=== PATIENT | male | born 1965 | race Hispanic/Latino ===

== ENCOUNTER 2019-03-01 07:47 | Day surgery (SDC) | payer BC ==
[2019-02-25 09:40] LABS: Potassium 4.2 mmol/L (3.5-5.1)
[2019-02-25 09:44] LABS: Basophils % 1.4 % (0-1.3); Hematocrit 40.9 % (39.6-49.0); Lymphocytes % 27.1 % (15.3-44.8); MPV 8.7 fL (7.6-11.3); RBC Red Blood Cell Count 4.66 M/uL (4.33-5.43)
[2019-02-25 09:49] LABS: Albumin 3.9 g/dL (3.4-5.0); Bilirubin Direct 0.1 mg/dL (0-0.2); Bilirubin Total 0.4 mg/dL (0.2-1.0); Protein, Total 7.7 g/dL (6.4-8.2)
--- NOTE | 2019-02-25 10:00 | RAD REPORT ---
EXAM DESCRIPTION: Wali Sutton (2 Views)02/25/2019 8:59 am CLINICAL HISTORY: Preop for cholecystectomy COMPARISON: 2018 FINDINGS: The lungs appear clear of acute infiltrate. The heart is normal size IMPRESSION: No acute abnormalities displayed
[2019-03-01] MEDS ORDERED: CEFOXITIN/SWI 1gm 1 GM/10 ML SYR ONE (08:24)
[2019-03-01] MEDS ORDERED: MIDAZOLAM HCL 2 MG/2 ML INJ ONE (08:35)
[2019-03-01] MEDS ORDERED: PROPOFOL 200 MG/20 ML VIAL IV ONE (08:35)
[2019-03-01] MEDS ORDERED: LIDOCAINE 1% MPF 5 ML VIAL ONE (08:36)
[2019-03-01] MEDS ORDERED: ROCURONIUM 50 MG/5 ML VIAL IV ONE (08:36)
[2019-03-01] MEDS ORDERED: FENTANYL CITR 100 MCG/2 ML ONE (08:36)
[2019-03-01] MEDS: NA CHLORIDE 0.9% 1,000 ML ONE (08:37)
[2019-03-01] MEDS ORDERED: GLYCOPYRROLATE 0.2 MG/ML SYR ONE (10:04)
[2019-03-01] MEDS ORDERED: KETOROLAC 30 MG/ML INJ ONE (10:04)
[2019-03-01] MEDS ORDERED: ONDANSETRON 4 MG/2 ML VIAL ONE (10:05)
[2019-03-01] MEDS ORDERED: NEOSTIGMINE 1 MG/ML -10 ML VIAL ONE (10:05)
[2019-03-01] MEDS ORDERED: MEPERIDINE HCL 25 MG/0.5 ML ONE (10:24)
[2019-03-01] MEDS ORDERED: Mastisol Adhesive Liq ONE (10:25)
[2019-03-01] MEDS: HYDROMORPHONE HCL 1 MG/ML INJ ONE ×2 (11:06→11:18)
[2019-03-01] MEDS ORDERED: NA CHLORIDE 0.9% 1,000 ML ONE (11:12)
[2019-03-01 14:00] VITALS: BP 107/68; TEMP 97.1; O2SAT 94
--- NOTE | 2019-03-01 21:26 | OP ---
Date of Procedure: 03/01/2019 Surgeon: Edu Wilson MD Vocational Psychologist: AMANDA Palacios. Preoperative Diagnosis: Symptomatic cholelithiasis and fatty liver. Postoperative Diagnosis: Symptomatic cholelithiasis and fatty liver. Procedure: Laparoscopic cholecystectomy and wedge biopsy of the liver. Estimated Blood Loss: Minimal. Specimen: Gallbladder and wedge biopsy of the liver. Findings: As above. Anesthesia: General. Complications: None. Disposition: The patient tolerated the procedure in stable condition, taken to Recovery in good gene ral condition. Procedure In Detail: The patient was brought to the OR and placed in supine position. General anest hesia was begun. The patient was prepped and draped in usual sterile fashion. Marcaine 0.5% was inf iltrated locally. Then, a 1 cm incision was made in the epigastrium just to the right of midline bec ause patient had mesh from previous hernia repair at the umbilicus. Subcutaneous tissue divided. Th e fascia was identified and divided. A #1 Vicryl stay suture was placed. Peritoneal cavity was ente red with sharp and blunt dissection. 12 mm trocar was placed into the peritoneal cavity under direct vision. Pneumoperitoneum was established. Then, an 11 mm trocar placed in the right paramedian reg ion away from the mesh and two 5 mm trocars placed, 1 in the epigastric and 1 in the right subcostal region. Laparoscopy revealed chronic inflammation of the gallbladder. The fundus was retracted supe riorly. Infundibulum was identified and retracted inferolaterally. Cystic duct and cystic artery we re clearly identified with blunt dissection. Clips placed. Both structures divided. Cautery was us ed to remove the gallbladder from the liver bed. Bleeding on the liver bed was controlled with caute ry. The gallbladder was retrieved through the epigastric trocar in the standard fashion. Pneumoperi toneum reestablished. No evidence of bleeding or bile leakage appreciated. Subsequently, a wedge re section at the edge of the liver done in the standard fashion utilizing cautery, bleeding controlled with cautery, and specimen sent to Pathology. Then, all trocars were removed under direct vision. T here was some oozing noted at the right paramedian incision and this was easily controlled with figur e-of-eight #1 Vicryl suture with Endo Close device. Then, all trocars were removed under direct visi on. No evidence of bleeding was noted from any of the other trocar device and then stay sutures tied to each other across the fascial defect. Wounds irrigated, bleeding controlled with cautery. 3-0 c hromic used to approximate the subcutaneous tissue and close the skin. Sterile dressing was applied. The patient was awakened and taken to Recovery in good general condition. Discharge Note: Patient will go to Day Surgery and home when stable. Disposition: Home. Condition: Stable. Discharge Instructions: Resume home medications and diet. Activity as tolerated. No heavy lifting. Remove outer dressing in 2 days. Shower. Keep wound clean and dry. Follow up in my office in 1 w [place]. Call for appointment. Tylenol No. 3 one tablet p.o. q.4 p.r.n. pain. Keep Steri-Strips on at all times. Incentive spirometer. /MODL Voice ID: [id number] Report ID: [id number]
== END 2019-03-01 13:15 | disposition home or self-care (01) ==
LOC: OR 07:47
PROVIDERS: ATTEND Surgery
PROC: 0FB04ZX Excision of Liver, Percutaneous Endoscopic Approach, Diagnostic (ICD-10-PCS; 2019-03-01)
PROC: 0FT44ZZ Resection of Gallbladder, Percutaneous Endoscopic Approach (ICD-10-PCS; principal; 2019-03-01 09:00)
DX: K80.10 Calculus of gallbladder with chronic cholecystitis without obstruction (principal); K76.0 Fatty (change of) liver, not elsewhere classified; E11.9 Type 2 diabetes mellitus without complications; I10 Essential (primary) hypertension; Z83.3 Family history of diabetes mellitus; Z82.49 Family history of ischemic heart disease and other diseases of the circulatory system
CPT/HCPCS: 85025; 80048; 36415; 82150; 88313; 82962 ×2; 80076; 88304; 88307; 71046; 47562; 47379; J2704; J2710; J2250; J3010; J2175; J1170; J7030 ×2; J2405

== ENCOUNTER 2019-04-03 22:26 | Emergency (ER) | payer BC ==
[2019-04-03] MEDS ORDERED: NA CHLORIDE 0.9% 1,000 ML ONE (23:18)
[2019-04-03] MEDS ORDERED: ONDANSETRON 4 MG/2 ML VIAL ONE (23:18)
[2019-04-03] MEDS ORDERED: KETOROLAC 30 MG/ML INJ ONE (23:18)
[2019-04-03 23:32] LABS: Absolute Lymphocytes (CBC) 0.4 K/uL (0.7-4.9); Basophils % 0.4 % (0-1.3); Hematocrit 39.3 % (39.6-49.0); Lymphocytes % 4.8 % (15.3-44.8); RBC Red Blood Cell Count 4.42 M/uL (4.33-5.43)
[2019-04-03 23:45] LABS: Albumin 3.7 g/dL (3.4-5.0); Bilirubin Direct 0.2 mg/dL (0-0.2); Bilirubin Total 0.7 mg/dL (0.2-1.0); Potassium 3.8 mmol/L (3.5-5.1); Protein, Total 7.5 g/dL (6.4-8.2)
[2019-04-04 00:16] LABS: Blood Morphology Comment NOT SEEN (NOT SEEN); Platelet Estimate ADEQ
--- NOTE | 2019-04-04 02:06 | ER ---
Nurse's Notes [facility] Name: Parker Dumont Age: 53 yrs Sex: Male : 1965 Arrival Date: 04/03/2019 Time: 22:28 Bed 4 Private MD: Diagnosis: Upper abdominal pain, unspecified Presentation: 04/03 22:46 Presenting complaint: Patient states: pain started a few nights ago. it woke me up and rv it is like a sharp on and off pain on my right side. i have nausea and vomiting too. my gall bladder was recently removed four weeks ago. my doctor told me to see the surgeon and I have the appointment tomorrow, but today the pain is getting worse and worse. Transition of care: patient was not received from another setting of care. Onset of symptoms was April 03, 2019 at 18:00. Risk Assessment: Do you want to hurt yourself or someone else? Patient reports no desire to harm self or others. Initial Sepsis Screen: Does the patient meet any 2 criteria? No. Patient's initial sepsis screen is negative. Does the patient have a suspected source of infection? No. Patient's initial sepsis screen is negative. Care prior to arrival: None. 22:46 Method Of Arrival: Ambulatory rv 22:46 Acuity: HANDY 3 rv Triage Assessment: 22:50 General: Appears in no apparent distress. uncomfortable, Behavior is calm, cooperative. rv Pain: Complains of pain in diaphragm Pain radiates to abdomen diffusely. EENT: No signs and/or symptoms were reported regarding the EENT system. Neuro: Level of Consciousness is awake, alert, obeys commands, Oriented to person, place, time, situation. Cardiovascular: Patient's skin is warm and dry. Respiratory: Airway is patent. GI: Abdomen is round non-distended, Reports nausea, vomiting. : No signs and/or symptoms were reported regarding the genitourinary system. Derm: Skin is intact. Musculoskeletal: No signs and/or symptoms reported regarding the musculoskeletal system. Historical: - Allergies: 22:49 No Known Allergies; rv - Home Meds: 22:49 amlodipine 5 mg tab 1 tab once daily [Active]; bisoprolol fumarate 10 mg Oral tab 1 tab rv once daily [Active]; fenofibrate 145mg Oral 1 tab once daily [Active]; glimepiride 4 mg Oral tab 1 tab once daily [Active]; Janumet Oral 1 tab evening [Active]; losartan 100 mg Oral tab 1 tab once daily [Active]; - PMHx: 22:49 Diabetes - NIDDM; High Cholesterol; Hypertension; Pancreatitis; rv - PSHx: 22:49 Cholecystectomy; Hernia repair; rv - Immunization history:: Adult Immunizations up to date. - Social history:: Smoking status: Patient/guardian denies using tobacco, never smoked. - Ebola Screening: : No symptoms or risks identified at this time. Screenin:51 Abuse screen: Denies threats or abuse. Denies injuries from another. Nutritional rv screening: No deficits noted. Tuberculosis screening: No symptoms or risk factors identified. Fall Risk None identified. Assessment: 22:56 General: Appears uncomfortable, well groomed, Behavior is calm, cooperative. Pain: lc1 Complains of pain in Right upper abdomen Pain radiates to abdomen diffusely Pain currently is 10 out of 10 on a pain scale. Quality of pain is described as sharp, Pain began has been coming and going today, but has had this pain before since having his gallbladder out about a month ago Is intermittent. Neuro: Level of Consciousness is awake, alert, obeys commands, Oriented to person, place, time, situation. Cardiovascular: No deficits noted. Denies chest pain, lightheadedness, palpitations, shortness of breath. Respiratory: Airway is patent Respiratory effort is even, unlabored. GI: Bowel sounds present X 4 quads. Abd is soft Reports nausea, vomiting, with pain. : No signs and/or symptoms were reported regarding the genitourinary system. EENT: No signs and/or symptoms were reported regarding the EENT system. Derm: No signs and/or symptoms reported regarding the dermatologic system. Musculoskeletal: No signs and/or symptoms reported regarding the musculoskeletal system. 23:45 Reassessment: Patient and/or family updated on plan of care and expected duration. Pain lc1 level reassessed. Patient is alert, oriented x 3, equal unlabored respirations, skin warm/dry/pink. Patient states feeling better. 04/04 00:21 Reassessment: No changes from previously documented assessment. Patient and/or family lc1 updated on plan of care and expected duration. Pain level reassessed. Patient is alert, oriented x 3, equal unlabored respirations, skin warm/dry/pink. 01:39 Reassessment: No changes from previously documented assessment. Patient and/or family lc1 updated on plan of care and expected duration. Pain level reassessed. Patient is alert, oriented x 3, equal unlabored respirations, skin warm/dry/pink. Vital Signs: 04/03 22:48 BP 161 / 102; Resp 16; Temp 98.7; Pulse Ox 98% ; Weight 88.45 kg; Height 5 ft. 5 in. rv (165.10 cm); Pain 10/10; 22:56 BP 145 / 90; Pulse 80; Resp 18; Pulse Ox 98% on R/A; lc1 23:30 BP 137 / 85; Pulse 76; Resp 18; Pulse Ox 97% on R/A; Pain 0/10; lc1 04/04 00:00 BP 131 / 81; Pulse 69; Resp 20; Pulse Ox 96% on R/A; 1 00:30 BP 128 / 80; Pulse 77; Resp 16; Pulse Ox 95% on R/A; 1 01:16 BP 137 / 82; Pulse 72; Resp 18; Pulse Ox 96% on R/A; 1 01:30 BP 130 / 77; Pulse 67; Resp 16; Pulse Ox 96% on R/A; 1 02:00 BP 129 / 84; Pulse 70; Resp 18; Temp 97.8(TE); Pulse Ox 96% on R/A; 1 04/03 22:48 Body Mass Index 32.45 (88.45 kg, 165.10 cm) rv ED Course: 04/03 22:28 Patient arrived in ED. cl3 22:38 Nima Sanchez PA is PHCP. cp 22:38 Romaine Reyes MD is Attending Physician. cp 22:41 Autumn Cortés is Primary Nurse. lc1 22:48 Triage completed. rv 22:51 Patient has correct armband on for positive identification. Placed in gown. Bed in low rv position. Call light in reach. Side rails up X 1. Adult w/ patient. sales operations coordinator on. Pulse ox on. NIBP on. 22:56 No apparent distress. Resting quietly. lc1 22:56 Noise minimized. Warm blanket given. lc1 23:17 Initial lab(s) drawn, by me, sent to lab. Inserted saline lock: 20 gauge in right jd2 antecubital area, using aseptic technique. Blood collected. 23:40 XRAY Chest (1 view) In Process Unspecified. EDMS 04/04 00:21 Noise minimized. Lights dimmed. 1 00:21 No provider procedures requiring assistance completed. lc1 00:39 Radiology exam delayed due to RESTROOM. 01:00 Patient notified of wait time. lc1 01:19 CT completed. Patient tolerated procedure well. Patient moved to CT via wheelchair. Patient moved back from CT. 01:37 CT Abd/Pelvis - IV Contrast Only In Process Unspecified. EDMS 01:39 Awaiting radiology results. lc1 02:00 IV discontinued, intact, bleeding controlled, Pressure dressing applied. 1 02:04 Edu Wilson MD is Referral Physician. cp Administered Medications: 04/03 23:21 Drug: NS 0.9% 1000 ml Route: IV; Rate: 1 bolus; Site: right antecubital; [facility] 04/04 02:23 Follow up: Response: No adverse reaction; IV Status: Completed infusion [facility] 04/03 23:24 Drug: Zofran 4 mg Route: IVP; Infused Over: 2 mins; Site: right antecubital; 1 23:47 Follow up: Response: No adverse reaction [facility] 23:24 Drug: TORadol 30 mg Route: IVP; Site: right antecubital; 1 23:46 Follow up: Response: Pain is decreased; RASS: Alert and Calm (0) [facility] Outcome: 04/04 02:05 Discharge ordered by MD. cp 02:21 Discharged to home ambulatory, with significant other. [facility] 02:21 Condition: good 02:21 Discharge instructions given to patient, Instructed on discharge instructions, follow up and referral plans. medication usage, Demonstrated understanding of instructions, follow-up care, medications. 02:22 Patient left the ED. [facility] Signatures: Dispatcher [employer] EDNH Arpit Fernandez Autumn Cortés lc1 Nima Sanchez PA PA cp Donley, Jonika jd2 Derek Lawton RN RN Jay Angela cl3
--- NOTE | 2019-04-04 02:06 | EDPHYS ---
Physician Documentation [facility] Name: Parker Dumont Age: 53 yrs Sex: Male : 1965 Arrival Date: 04/03/2019 Time: 22:28 Bed 4 Private MD: ED Physician Romaine Reyes HPI: 04/03 23:20 This 53 yrs old Male presents to ER via Ambulatory with complaints of cp Abdominal Pain. 23:20 The patient presents with abdominal pain in the right upper quadrant. Onset: The cp symptoms/episode began/occurred a few nights ago. The symptoms radiate to mid back. Associated signs and symptoms: Pertinent positives: nausea and vomiting, Pertinent negatives: constipation, diarrhea, fever, headache, shortness of breath, testicular pain. 23:20 The symptoms are described as intermittent, sharp. cp 23:20 Modifying factors: The symptoms are alleviated by narcotics, the symptoms are cp aggravated by nothing. 23:20 Patient reports having cholecystectomy [address]. cp Historical: - Allergies: 22:49 No Known Allergies; rv - Home Meds: 22:49 amlodipine 5 mg tab 1 tab once daily [Active]; bisoprolol fumarate 10 mg Oral tab 1 tab rv once daily [Active]; fenofibrate 145mg Oral 1 tab once daily [Active]; glimepiride 4 mg Oral tab 1 tab once daily [Active]; Janumet Oral 1 tab evening [Active]; losartan 100 mg Oral tab 1 tab once daily [Active]; - PMHx: 22:49 Diabetes - NIDDM; High Cholesterol; Hypertension; Pancreatitis; rv - PSHx: 22:49 Cholecystectomy; Hernia repair; rv - Immunization history:: Adult Immunizations up to date. - Social history:: Smoking status: Patient/guardian denies using tobacco, never smoked. - Ebola Screening: : No symptoms or risks identified at this time. ROS: 23:25 Constitutional: Negative for body aches, chills, fever, poor PO intake. cp 23:25 Eyes: Negative for injury, pain, redness, and discharge. cp 23:25 ENT: Negative for drainage from ear(s), ear pain, sore throat, difficulty swallowing, difficulty handling secretions. 23:25 Cardiovascular: Negative for chest pain, edema, palpitations. 23:25 Respiratory: Negative for cough, shortness of breath, wheezing. 23:25 Abdomen/GI: Positive for abdominal pain, of the right upper quadrant, Negative for diarrhea, constipation, anorexia, dysphagia, active vomiting. 23:25 Back: Positive for radiated pain, Negative for injury or acute deformity, decreased range of motion. 23:25 : Negative for urinary symptoms, pelvic pain, testicular pain 23:25 Skin: Negative for rash. 23:25 Neuro: Negative for altered mental status, headache, numbness, syncope, weakness. 23:25 All other systems are negative. Exam: 23:30 Constitutional: The patient appears in no acute distress, alert, awake, cp non-diaphoretic, non-toxic, well developed, well nourished. 23:30 Head/Face: Normocephalic, atraumatic. cp 23:30 Eyes: Periorbital structures: appear normal, Conjunctiva: normal, no exudate, no injection, Sclera: no appreciated abnormality, Lids and lashes: appear normal, bilaterally. 23:30 ENT: External ear(s): are unremarkable, Nose: is normal, Mouth: is normal, Posterior pharynx: is normal, airway is patent, no erythema, no exudate. 23:30 Chest/axilla: Inspection: normal, Palpation: is normal, no crepitus, no tenderness. 23:30 Cardiovascular: Rate: normal, Rhythm: regular, Heart sounds: murmur, not appreciated, Edema: is not appreciated, JVD: is not appreciated. 23:30 Respiratory: the patient does not display signs of respiratory distress, Respirations: normal, no use of accessory muscles, no retractions, no splinting, no tachypnea, labored breathing, is not present, Breath sounds: are clear throughout, no decreased breath sounds, no stridor, no wheezing. 23:30 Abdomen/GI: Inspection: abdomen appears normal, Bowel sounds: active, all quadrants, Palpation: soft, in all quadrants, mild abdominal tenderness, in the right upper quadrant, rebound tenderness, is not appreciated, voluntary guarding, is not appreciated. 23:30 Back: ROM is normal. 23:30 Skin: no rash present. Vital Signs: 22:48 BP 161 / 102; Resp 16; Temp 98.7; Pulse Ox 98% ; Weight 88.45 kg; Height 5 ft. 5 in. rv (165.10 cm); Pain 10/10; 22:56 BP 145 / 90; Pulse 80; Resp 18; Pulse Ox 98% on R/A; lc1 23:30 BP 137 / 85; Pulse 76; Resp 18; Pulse Ox 97% on R/A; Pain 0/10; lc1 04/04 00:00 BP 131 / 81; Pulse 69; Resp 20; Pulse Ox 96% on R/A; lc1 00:30 BP 128 / 80; Pulse 77; Resp 16; Pulse Ox 95% on R/A; lc1 01:16 BP 137 / 82; Pulse 72; Resp 18; Pulse Ox 96% on R/A; lc1 01:30 BP 130 / 77; Pulse 67; Resp 16; Pulse Ox 96% on R/A; lc1 02:00 BP 129 / 84; Pulse 70; Resp 18; Temp 97.8(TE); Pulse Ox 96% on R/A; lc1 04/03 22:48 Body Mass Index 32.45 (88.45 kg, 165.10 cm) rv MDM: 04/03 22:44 Patient medically screened. cp 23:55 Differential diagnosis: bowel obstruction, gastritis, non-specific abd pain, cp pancreatitis, Peptic Ulcer Disease, Perf. Duodenal Ulcer, Perf. Gastric Ulcer, Ureterolithiasis, urinary tract infection, pneumonia, choledocholithiasis. 04/04 02:05 Data reviewed: vital signs, nurses notes, lab test result(s), radiologic studies, CT cp scan, I have discussed the patient's presentation/case with the attending Emergency Department Physician; and as a result, I will discharge patient. 02:05 Counseling: I had a detailed discussion with the patient and/or guardian regarding: the cp historical points, exam findings, and any diagnostic results supporting the discharge/admit diagnosis, lab results, radiology results, the need for outpatient follow up, a general surgeon, to return to the emergency department if symptoms worsen or persist or if there are any questions or concerns that arise at home. Response to treatment: the patient's symptoms have markedly improved after treatment, VSS. Pain improved and patient has appt with DR Wilson later today for f/u, and as a result, I will discharge patient. 04/03 23:07 Order name: Basic Metabolic Panel; Complete Time: 23:48 cp 04/03 23:48 Interpretation: Normal except: GLUC 146; BUN 21; GFR 64. cp 04/03 23:07 Order name: CBC with Diff; Complete Time: 00:40 cp 04/03 23:49 Interpretation: Normal except: HGB 13.4; HCT 39.3; LEE% 90.3; LYM% 4.8; MN% 2.6; LYMA cp 0.4. 04/03 23:07 Order name: Creatinine for Radiology; Complete Time: 23:48 cp 04/03 23:07 Order name: Hepatic Function; Complete Time: 23:48 cp 04/04 00:40 Interpretation: Normal except: AST 53; GLOB 3.8; A/G 1.0. cp 04/03 23:07 Order name: Lipase; Complete Time: 23:48 cp 04/03 23:16 Order name: Urine Microscopic Only cp 04/03 23:16 Order name: XRAY Chest (1 view) cp 04/03 23:16 Order name: Urine Microscopic Only EDMS 04/03 23:42 Order name: Manual Differential; Complete Time: 00:40 EDMS 04/04 00:40 Interpretation: Normal except: SEGS 84; BANDS [F] 7; LYM 6. cp 04/03 23:50 Order name: CT Abd/Pelvis - IV Contrast Only cp 04/04 01:13 Order name: Urine Dipstick--Ancillary (enter results) [facility] 04/03 23:07 Order name: IV Saline Lock; Complete Time: 23:17 cp 04/03 23:07 Order name: Labs collected and sent; Complete Time: 23:17 cp Administered Medications: 04/03 23:21 Drug: NS 0.9% 1000 ml Route: IV; Rate: 1 bolus; Site: right antecubital; [facility] 04/04 02:23 Follow up: Response: No adverse reaction; IV Status: Completed infusion [facility] 04/03 23:24 Drug: Zofran 4 mg Route: IVP; Infused Over: 2 mins; Site: right antecubital; [facility] 23:47 Follow up: Response: No adverse reaction [facility] 23:24 Drug: TORadol 30 mg Route: IVP; Site: right antecubital; [facility] 23:46 Follow up: Response: Pain is decreased; RASS: Alert and Calm (0) [facility] Disposition: 04/04 06:13 Co-signature as Attending Physician, Romaine Reyes MD. Disposition: 04/04/19 02:05 Discharged to Home. Impression: Upper abdominal pain, unspecified. - Condition is Stable. - Discharge Instructions: Abdominal Pain, Adult. - Prescriptions for Bentyl 20 mg Oral Tablet - take 2 tablet by ORAL route every 6 hours As needed; 40 tablet. Zofran 4 mg Oral Tablet - take 1 tablet by ORAL route every 12 hours As needed; 20 tablet. - Medication Reconciliation Form, Thank You Letter, Antibiotic Education, Prescription Opioid Use form. - Follow up: Edu Wilson MD; When: Today; Reason: Recheck today's complaints. - Problem is new. - Symptoms have improved. Signatures: Dispatcher [employer] EDMS Autumn Cortés lc1 Nima Sanchez PA PA cp Romaine Reyes MD MD Derek Lawton RN RN rv Corrections: (The following items were deleted from the chart) 02:22 02:05 04/04/2019 02:05 Discharged to Home. Impression: Upper abdominal pain, lc1 unspecified. Condition is Stable. Forms are Medication Reconciliation Form, Thank You Letter, Antibiotic Education, Prescription Opioid Use. Follow up: Dr. Edu iWlson; When: Today; Reason: Recheck today's complaints. Problem is new. Symptoms have improved. cp
[2019-04-04 02:17] LABS: Urine Bacteria <20 /HPF (NONE SEEN); Urine Culture Reflex Order NOT NEEDED; Urine Mucus 1+ /HPF (NONE SEEN); Urine RBC <5 /HPF (NONE SEEN)
[2019-04-04 02:35] VITALS: O2SAT 96
[2019-04-04 02:37] VITALS: BP 129/84; TEMP 97.8
[2019-04-04 03:18] LABS: Urine Blood NEGATIVE (NEG); Urine Glucose NEGATIVE (NEG); Urine Protein NEGATIVE (NEG); Urine Specific Gravity 1.015 (1.005-1.030); Urine pH 6.5 (5.0-7.0)
--- NOTE | 2019-04-04 07:27 | RAD REPORT ---
EXAM DESCRIPTION: RAD - Chest Single View - 04/03/2019 11:40 pm CLINICAL HISTORY: Upper abdominal pain, lower chest pain COMPARISON: February 25 TECHNIQUE: AP portable chest image was obtained 2328 hours . FINDINGS: Lungs are clear. Heart and vasculature are normal. No measurable pleural effusion and no p neumothorax. No acute bony abnormality seen. No acute aortic findings suspected. IMPRESSION: No acute cardiopulmonary process. No suspicious interval change.
--- NOTE | 2019-04-04 08:29 | EKG ---
Test Date: 2019-04-03 Test Time: 22:48:03 [employer] Architect: TOMMY MEASUREMENT RESULTS: Intervals: Rate: 77 [place]: 176 QRSD: 94 QT: 390 QTc: 441 [place]: P: 71 [place]: 176 QRS: 62 T: 56 INTERPRETIVE STATEMENTS: Normal sinus rhythm Normal ECG Compared to ECG 08/07/2017 08:04:41 Right-axis deviation no longer present Electronically Signed On 04-04-19 08:27:34 CDT by Geovany Pickett
--- NOTE | 2019-04-04 11:58 | RAD REPORT ---
EXAM DESCRIPTION: CT - Abdomen Pelvis W Contrast - 04/04/2019 2:05 am CLINICAL HISTORY: RUQ abdomen pain, cholecystectomy 1 month ago COMPARISON: None. TECHNIQUE: CT ABDOMEN PELVIS WITH IV CONTRAST on 04/03/2019 11:50 PM CDT This exam was performed according to our departmental dose-optimization program, which includes autom ated exposure control, adjustment of the mA and/or kV according to patient size and/or use of iterati ve reconstruction technique. FINDINGS: Lower lungs are clear. Abdomen: Liver is mildly enlarged and fatty in attenuation. There is no biliary dilatation. Cholecyst ectomy. The pancreas and spleen are normal in appearance. Adrenal glands are normal. There is a 1 mm lower pole left renal calculus. There is no hydronephrosis. Abdominal aorta is normal in course and caliber without aneurysm. There is no free air. There is no r etroperitoneal adenopathy.There is a small fat-containing umbilical hernia. Pelvis: There is no bowel obstruction. Urinary bladder is unremarkable. There is no free fluid. Appen chay is normal. There are small fat-containing bilateral inguinal hernias. Skeleton: There are no acute osseous findings. No suspicious bony lesions. IMPRESSION: Minimal left nephrolithiasis without hydronephrosis. Unremarkable right upper quadrant other than mild hepatic cirrhosis. Electronically signed by: Chilo Bone MD 04/04/2019 1:42 AM CDT Due to temporary technical issues with the PACS/Fluency reporting system, reports are being signed by the in house radiologist as a courtesy to ensure prompt reporting. The interpreting radiologist is f ully responsible for the content of the report.
== END 2019-04-04 02:22 | disposition home or self-care (01) ==
LOC: ER 22:26
DX: R10.11 Right upper quadrant pain (principal); I10 Essential (primary) hypertension; E11.9 Type 2 diabetes mellitus without complications; E78.00 Pure hypercholesterolemia, unspecified
CPT/HCPCS: 96361; 93005; 85025; 80048; 36415; 80076; 83690; 74177; 71045; 96375; 96374; 99285; Q9967; J7030; J2405; 81003; 81015

== ENCOUNTER 2020-01-11 16:22 | Inpatient (IN) | payer BC, OTHER ==
--- OUTSIDE RECORDS SUMMARY | 2020-01-11 16:25 | XMS REPORT | Clinical Summary ---
:1965 Author Organization [facility] Address [address] [place] [address] Care Team Providers Name Role Phone Keiht Lopez MD Primary Care Provider Allergies No Known Allergies Medications Medication Sig Dispensed Refills Start Date End Date Status amLODIPine (NORVASC) 5 0 12/18/2017 Active mg tablet glimepiride (AMARYL) 4 0 12/09/2017 Active MG tablet BISOPROLOL FUMARATE Take 10 mg by 0 Active ORAL mouth. metFORMIN (GLUCOPHAGE) Take 500 mg by 0 Active 500 mg tablet mouth 2 (two) times a day with meals. fenofibrate (TRICOR) Take 145 mg by 0 Active 145 MG tablet mouth daily. ezetimibe (ZETIA) 10 mg Take 10 mg by 0 Active tablet mouth daily. Active Problems Not on file Family History Medical History Relation Name Comments Hypertension Father Diabetes Mother Relation Name Status Comments Father Mother Social History Tobacco Use Types Packs/Day Years Used Date Never Smoker Smokeless Tobacco: Never Used Alcohol Use Drinks/Week oz/Week Comments No Sex Assigned at Date Recorded Not on file Job Start Date Occupation Industry Not on file Not on file Not on file Travel History Travel Start Travel End No recent travel history available. Last Filed Vital Signs Not on file Plan of Treatment Health Maintenance Due Date Last Done Comments COLONOSCOPY SCREENING 2016 SHINGLES VACCINES (#1) 2016 INFLUENZA VACCINE 01/11/2020 Implants Implanted Type Area Staple Cutter Device Shelf Model / Identifier Expiration Serial / Date Lot Device Fxtn Absrbl Strp 5mm Securestrap - [id number] Surgical N/A: N/A ETH[employer]ON DIV OF 08/10/2019 [id number] / Implanted: Qty: 1 on 01/18/2018 by Miki Rosa MD at [facility] Implants; DAMION & / Expanders; DAMION Extenders; Surgical Wires Mesh Hrnia Rpr Parietex 6x4in Rectngl Cmpst Resbl Plystr - L [id number] Surgical N/A: N/A COVIDIEN 05/11/2022 [id number] / Implanted: 01/18/2018 at [facility] (Quantity not on file) Mesh or SURGICAL / Tissue [id number] Barrier Products Results Not on fileafter 01/10/2019 Advance Directives For more information, please contact: [phone] Type Date Recorded Patient Home Companion Explanati on Advance Directives, Living Will and Medical Power of Drug Abuse Social Worker
[2020-01-11 17:11] LABS: Absolute Lymphocytes (CBC) 0.7 K/uL (0.7-4.9); Basophils % 0.1 % (0-1.3); Lymphocytes % 8.2 % (15.3-44.8); MPV 7.3 fL (7.6-11.3); RBC Red Blood Cell Count 4.02 M/uL (4.33-5.43)
[2020-01-11 17:14] LABS: Protime INR 1.34
[2020-01-11] MEDS ORDERED: ALBUTEROL INHALER 60 PUFF/8 GM IH ONE (17:19)
[2020-01-11] MEDS ORDERED: METHYLPREDNISOLONE 40 MG INJ ONE (17:19)
[2020-01-11] MEDS ORDERED: CEFTRIAXONE/SWI 1gm 1 GM/10 ML SYR ONE (17:19)
[2020-01-11 17:39] LABS: ALT/SGPT 47 U/L (12-78); AST/SGOT 35 U/L (15-37); Albumin 3.1 g/dL (3.4-5.0); Alkaline Phosphatase 80 U/L (45-117); BUN Blood Urea Nitrogen 22 mg/dL (7-18); Bicarbonate 26 mmol/L (21-32); Bilirubin Direct 0.1 mg/dL (0-0.2); Bilirubin Total 0.4 mg/dL (0.2-1.0); Glucose Level 135 mg/dL (74-106); Magnesium 2.2 mg/dL (1.8-2.4); NT PRO-BNP 80 pg/mL (<125); Potassium 3.7 mmol/L (3.5-5.1); Protein, Total 8.4 g/dL (6.4-8.2); Sodium Level 140 mmol/L (136-145); Troponin (Emerg Dept Use Only) < 0.02 ng/mL (0.0-0.045)
[2020-01-11 17:49] LABS: Blood Morphology Comment NOT SEEN (NOT SEEN); Platelet Estimate ADEQ; Urine White Blood Cell Casts OK
--- NOTE | 2020-01-11 17:52 | ER ---
Nurse's Notes [facility] Name: Parker Dumont Age: 54 yrs Sex: Male : 1965 Arrival Date: 01/11/2020 Time: 16:27 Bed 8 Private MD: Diagnosis: Pneumonia due to other specified infectious organisms;Respiratory failure, unspecified with hypoxia Presentation: 01/10 16:30 Chief complaint: Patient states: SOB x 3 days. Was told by Dr. Lopez after a ss chest XRAY that he had pneumonia. Coronavirus screen: Client denies travel out of the [place] in the last 14 days. Client presents with at least one sign or symptom that may indicate coronavirus-19. Ebola Screen: Patient denies exposure to infectious person. Patient denies travel to an Ebola-affected area in the 21 days before illness onset. Initial Sepsis Screen: Does the patient meet any 2 criteria? RR > 20 per min. Does the patient have a suspected source of infection? Yes: Productive cough/pneumonia. Risk Assessment: Do you want to hurt yourself or someone else? Patient reports no desire to harm self or others. Onset of symptoms was January 08, 2020. 16:30 Method Of Arrival: Ambulatory ss 16:30 Acuity: HANDY 2 ss Historical: - Allergies: 16:32 No Known Allergies; ss - PMHx: 16:32 Diabetes - NIDDM; High Cholesterol; Hypertension; Pancreatitis; ss - PSHx: 16:32 Hernia repair; Cholecystectomy; ss - Immunization history:: Adult Immunizations up to date. - Social history:: Smoking status: Patient denies any tobacco usage or history of. Screenin:11 Abuse screen: Denies threats or abuse. Nutritional screening: No deficits noted. ll1 Tuberculosis screening: No symptoms or risk factors identified. Fall Risk IV access (20 points). Ambulatory Aid- Crutches/Cane/Walker (15 pts). Gait- Weak (10 pts.). Total Bah Fall Scale indicates High Risk Score (45 or more points). Fall prevention measures have been instituted. Side Rails Up X 2 Frequent Obs/Assessments Occuring As available patient and family educated on Fall Prevention Program and Strategies. Assessment: 17:11 General: Appears uncomfortable, Behavior is cooperative, anxious. Pain: Denies pain. ll1 Neuro: No deficits noted. Cardiovascular: No deficits noted. Respiratory: Reports shortness of breath at rest labored breathing Airway is patent Trachea midline Respiratory effort is labored, Respiratory pattern is tachypnea Breath sounds are diminished bilaterally. GI: No deficits noted. : No deficits noted. 18:10 Reassessment: Patient appears in no apparent distress at this time. No changes from ll1 previously documented assessment. Patient and/or family updated on plan of care and expected duration. Pain level reassessed. Patient is alert, oriented x 3, equal unlabored respirations, skin warm/dry/pink. Vital Signs: 16:30 Pulse 84; Resp 36; Pulse Ox 84% on R/A; Weight 84.82 kg; Height 5 ft. 5 in. (165.10 ss cm); Pain 0/10; 16:38 Temp 98.2; ll1 17:10 BP 134 / 87; ll1 17:25 Pulse 82; Resp 28; Pulse Ox 94% on 3 lpm NC; ll1 18:40 BP 112 / 72; Pulse 85; Resp 28; Pulse Ox 89% on 3 lpm NC; ll1 19:17 BP 118 / 65; Pulse 84; Resp 26; Pulse Ox 92% on 4 lpm NC; ll1 16:30 Body Mass Index 31.12 (84.82 kg, 165.10 cm) ED Course: 16:27 Patient arrived in ED. fj1 16:30 Nima Sanchez PA is PHCP. cp 16:30 Colten Carmona MD is Attending Physician. cp 16:32 Triage completed. ss 16:32 Arm band placed on right wrist. ss 17:10 Ryan Case, XAVIER is Primary Nurse. ll1 17:11 Inserted saline lock: 22 gauge in right antecubital area, using aseptic technique. ll1 Blood collected. 17:12 Patient has correct armband on for positive identification. Bed in low position. Call ll1 light in reach. Side rails up X2. Adult w/ patient. 17:12 No provider procedures requiring assistance completed. ll1 17:36 XRAY Chest (1 view) In Process Unspecified. EDMS 17:51 Keith Lopez MD is Hospitalizing Provider. cp 18:26 CT Chest For PE Angio In Process Unspecified. EDMS Administered Medications: 17:25 Drug: Rocephin 1 grams Route: IV; Rate: calculated rate; Site: right antecubital; ll1 18:45 Follow up: Response: No adverse reaction; RASS: Alert and Calm (0); IV Status: ll1 Completed infusion; IV Intake: 20ml 17:25 Drug: SOLU-Medrol 80 mg Route: IVP; Site: right antecubital; ll1 18:44 Follow up: Response: No adverse reaction; RASS: Alert and Calm (0) ll1 18:44 Drug: Albuterol HFA Inhaler 2 puffs Route: Inhalation; ll1 19:15 Drug: Zithromax 500 mg Route: IVPB; Infused Over: 1 hrs; Site: right antecubital; ll1 19:16 Drug: NS 0.9% (30 ml/kg) 30 ml/kg Route: IV; Rate: bolus; Site: right antecubital; ll1 19:16 Drug: Dexamethasone 6 mg Route: IVP; Site: right antecubital; ll1 20:04 Drug: Lovenox 40 mg Route: Sub-Q; Site: abdomen; ao 20:04 Follow up: Response: Other; OtherAdmission ao 20:06 Drug: NS 0.9% (30 ml/kg) 30 ml/kg Route: IV; Rate: bolus; Site: right antecubital; ao Intake: 18:45 IV: 20ml; Total: 20ml. 1 Outcome: 17:52 Decision to Hospitalize by Provider. cp 20:10 Patient left the ED. ao Signatures: Dispatcher [employer] EDElva Kramer RN RN ss Page, Corey, PA PA cp Ralf Jones RN RN ao James, [facility] Ryan Case RN RN [facility]
--- NOTE | 2020-01-11 17:53 | EDPHYS ---
Physician Documentation [facility] Name: Parker Dumont Age: 54 yrs Sex: Male : 1965 Arrival Date: 01/11/2020 Time: 16:27 Bed 8 Private MD: ED Physician Colten Carmona HPI: 01/10 16:40 This 54 yrs old Male presents to ER via Ambulatory with complaints of cp Breathing Difficulty. 16:40 The patient has shortness of breath at rest. Onset: The symptoms/episode began/occurred cp 3 day(s) ago. Duration: The symptoms are continuous, and are steadily getting worse. Associated signs and symptoms: Pertinent positives: chest pain, non-productive cough, Pertinent negatives: diaphoresis, fever. Severity of symptoms: in the emergency department the symptoms are worse. 16:40 Patient reports having chest xray this past that showed pneumonia. PCP is DR ramesh Lopez. Currently taking antibiotic. Historical: - Allergies: 16:32 No Known Allergies; ss - PMHx: 16:32 Diabetes - NIDDM; High Cholesterol; Hypertension; Pancreatitis; ss - PSHx: 16:32 Hernia repair; Cholecystectomy; ss - Immunization history:: Adult Immunizations up to date. - Social history:: Smoking status: Patient denies any tobacco usage or history of. ROS: 16:45 Constitutional: Negative for body aches, chills, fever, poor PO intake. cp 16:45 Eyes: Negative for injury, pain, redness, and discharge. cp 16:45 ENT: Negative for drainage from ear(s), ear pain, sore throat, difficulty swallowing, difficulty handling secretions. 16:45 Cardiovascular: Positive for chest pain, Negative for palpitations. 16:45 Respiratory: Positive for cough, "sounds productive", shortness of breath, at rest. Negative for wheezing. 16:45 Abdomen/GI: Negative for abdominal pain, nausea, vomiting, and diarrhea. 16:45 Back: Negative for radiated pain. 16:45 : Negative for urinary symptoms. 16:45 Neuro: Negative for altered mental status, dizziness, headache, syncope, weakness. 16:45 All other systems are negative. Exam: 16:50 Head/Face: Normocephalic, atraumatic. cp 16:50 Constitutional: The patient appears alert, awake, non-diaphoretic, non-toxic, well developed, well nourished, in obvious distress, moderately distressed, obviously ill. 16:50 Eyes: Periorbital structures: appear normal, Pupils: equal, round, and reactive to light and accomodation, Extraocular movements: intact throughout, Conjunctiva: normal, no exudate, no injection, Sclera: no appreciated abnormality, Lids and lashes: appear normal, bilaterally. 16:50 ENT: External ear(s): are unremarkable, Ear canal(s): are normal, clear, TM's: dullness, bilaterally, Nose: is normal, Mouth: Lips: moist, Oral mucosa: pink and intact, moist, Posterior pharynx: is normal, airway is patent, no erythema, no exudate. 16:50 Neck: ROM/movement: is normal, is supple, without pain, no range of motions limitations, no meningismus. 16:50 Chest/axilla: Inspection: normal, Palpation: is normal, no crepitus, no tenderness. 16:50 Cardiovascular: Rate: normal, Rhythm: regular, Edema: is not appreciated, JVD: is not appreciated. 16:50 Respiratory: moderate respiratory distress is noted, Respirations: labored breathing, that is moderate, accessory muscle usage, is absent, shallow respirations, that is moderate, tachypnea, that is moderate, Breath sounds: bronchial sounds, that are moderate, are heard diffusely, decreased breath sounds, that are mild, throughout, stridor, is not appreciated, wheezing: is not appreciated. 16:50 Abdomen/GI: Inspection: abdomen appears normal, Bowel sounds: active, all quadrants, Palpation: abdomen is soft and non-tender, in all quadrants. 16:50 Back: pain, is absent, ROM is normal. 16:50 Skin: no rash present. 16:50 Neuro: Orientation: to person, place \\T\\ time. Mentation: is normal, Motor: moves all fours, strength is normal, Sensation: is normal. 17:00 ECG was reviewed by the Attending Physician. cp Vital Signs: 16:30 Pulse 84; Resp 36; Pulse Ox 84% on R/A; Weight 84.82 kg; Height 5 ft. 5 in. (165.10 ss cm); Pain 0/10; 16:38 Temp 98.2; ll1 17:10 BP 134 / 87; ll1 17:25 Pulse 82; Resp 28; Pulse Ox 94% on 3 lpm NC; ll1 18:40 BP 112 / 72; Pulse 85; Resp 28; Pulse Ox 89% on 3 lpm NC; ll1 19:17 BP 118 / 65; Pulse 84; Resp 26; Pulse Ox 92% on 4 lpm NC; ll1 16:30 Body Mass Index 31.12 (84.82 kg, 165.10 cm) ss MDM: 16:34 Patient medically screened. cp 17:00 Differential diagnosis: CHF exacerbation, Myocardial Infarction pneumonia, pulmonary cp edema, Pulmonary Embolism Sepsis COVID-19 pneumonia. 17:50 Physician consultation: Keith Lopez MD was called at 17:51, was contacted at 17:51, cp regarding admission, to the telemetry unit. patient's condition, would like consultation with Dr. Aiken. 17:55 Data reviewed: vital signs, nurses notes, lab test result(s), EKG, radiologic studies, cp plain films, and as a result, I will admit patient. 17:55 Antibiotic administration: Zithromax. Test interpretation: by ED physician or midlevel cp provider: ECG, plain radiologic studies, chest xray shows bilateral infiltrates. Counseling: I had a detailed discussion with the patient and/or guardian regarding: the historical points, exam findings, and any diagnostic results supporting the discharge/admit diagnosis, lab results, radiology results, the need for further work-up and treatment in the hospital. 01/10 16:34 Order name: Basic Metabolic Panel; Complete Time: 17:44 cp 01/10 17:44 Interpretation: Normal except: GLUC 135; BUN 22; CRE 1.48; GFR 50. cp 01/10 16:34 Order name: CBC with Diff; Complete Time: 18:47 cp 01/10 17:21 Interpretation: Normal except: WBC 8.2; RBC 4.02; HGB 12.0; HCT 35.0; PLT 309; MPV 7.3; cp LEE% 87.8; LYM% 8.2. 01/10 16:34 Order name: LFT's; Complete Time: 17:44 cp 01/10 17:44 Interpretation: Normal except: TP 8.4; ALB 3.1; GLOB 5.3; A/G 0.6. cp 01/10 16:34 Order name: Magnesium; Complete Time: 17:44 cp 08/ 16:34 Order name: NT PRO-BNP; Complete Time: 17:44 cp 08/ 16:34 Order name: PT-INR; Complete Time: 17:21 cp 08/01 17:21 Interpretation: Abnormal: PT 15.7. cp 08/01 16:34 Order name: Troponin (emerg Dept Use Only); Complete Time: 17:44 cp / 16:34 Order name: COVID-19 cp 08/ 16:34 Order name: Flu cp 08/ 16:34 Order name: Strep cp 08/ 16:34 Order name: Blood Culture Adult (2) cp 01/10 16:34 Order name: Lactate; Complete Time: 17:31 cp 08/ 17:31 Interpretation: Abnormal: LAC 2.1. cp / 16:34 Order name: Procalcitonin; Complete Time: 17:44 cp 01/10 17:44 Interpretation: Abnormal: Procalcitonin 0.89. cp 01/10 16:34 Order name: D-Dimer; Complete Time: 17:21 cp 08/ 17:21 Interpretation: Within normal limits. cp 01/10 16:34 Order name: XRAY Chest (1 view); Complete Time: 18:47 cp 01/10 17:13 Order name: CBC Smear Scan; Complete Time: 18:47 EDMS 01/10 17:16 Order name: C-Reactive Protein; Complete Time: 17:44 EDMS 01/10 17:44 Interpretation: Abnormal: C-REACTIVE PROT 197.00. cp 01/10 17:50 Order name: CT Chest For PE Angio; Complete Time: 18:47 cp 01/10 18:26 Order name: Basic Metabolic Panel EDMS 01/10 18:26 Order name: Basic Metabolic Panel EDMS 01/10 18:26 Order name: Lipid Profile EDMS 01/10 18:26 Order name: Lipid Profile EDMS 01/10 18:28 Order name: CBC with Automated Diff EDMS 01/10 18:28 Order name: CBC with Automated Diff EDMS 01/10 18:28 Order name: Troponin I EDMS 01/10 18:28 Order name: Troponin I EDMS 01/10 16:34 Order name: EKG; Complete Time: 16:35 cp 01/10 16:34 Order name: Cardiac monitoring; Complete Time: 17:04 08 16:34 Order name: EKG - Nurse/Tech; Complete Time: 17:04 01/10 16:34 Order name: IV Saline Lock; Complete Time: 17:04 01/10 16:34 Order name: Labs collected and sent; Complete Time: 17:03 01/10 16:34 Order name: O2 Per Protocol; Complete Time: 17:03 01/10 16:34 Order name: O2 Sat Monitoring; Complete Time: 17:03 01/10 16:34 Order name: Document PUI# 01/10 16:34 Order name: Droplet/Contact Precautions; Complete Time: 17:04 01/10 16:34 Order name: Notify Health Dept [phone]/ 01/10 18:28 Order name: CONS Physician Consult EDTN 01/10 18:28 Order name: Respiratory Therapy Consult EDTN 01/10 18:28 Order name: Consistent Carb (ADA) 1800 Jareth EDTN 01/10 18:28 Order name: EKG Electrocardiogram EDTN 01/10 18:28 Order name: EKG Electrocardiogram EDTN 01/10 18:28 Order name: EKG Electrocardiogram EDTN EC:00 Rate is 81 beats/min. Rhythm is regular. IA interval is normal. QRS interval is normal. cp QT interval is normal. T waves are Inverted in lead aVR. Interpreted by me. Reviewed by me. Administered Medications: 17:25 Drug: Rocephin 1 grams Route: IV; Rate: calculated rate; Site: right antecubital; [facility] 18:45 Follow up: Response: No adverse reaction; RASS: Alert and Calm (0); IV Status: ll1 Completed infusion; IV Intake: 20ml 17:25 Drug: SOLU-Medrol 80 mg Route: IVP; Site: right antecubital; 1 18:44 Follow up: Response: No adverse reaction; RASS: Alert and Calm (0) 1 18:44 Drug: Albuterol HFA Inhaler 2 puffs Route: Inhalation; ll1 19:15 Drug: Zithromax 500 mg Route: IVPB; Infused Over: 1 hrs; Site: right antecubital; [facility] 19:16 Drug: NS 0.9% (30 ml/kg) 30 ml/kg Route: IV; Rate: bolus; Site: right antecubital; ll1 19:16 Drug: Dexamethasone 6 mg Route: IVP; Site: right antecubital; ll1 20:04 Drug: Lovenox 40 mg Route: Sub-Q; Site: abdomen; ao 20:04 Follow up: Response: Other; OtherAdmission ao 20:06 Drug: NS 0.9% (30 ml/kg) 30 ml/kg Route: IV; Rate: bolus; Site: right antecubital; ao Disposition: 01/11 16:46 Co-signature as Attending Physician, Colten Carmona MD I agree with the assessment and kdr plan of care. Disposition: 01/11/20 17:52 Hospitalization ordered by Keith Lopez for Inpatient Admission. Preliminary diagnosis are Pneumonia due to other specified infectious organisms, Respiratory failure, unspecified with hypoxia. - Bed requested for Telemetry/MedSurg (Inpatient). - Status is Inpatient Admission. ao - Condition is Serious. - Problem is new. - Symptoms have improved. Signatures: Dispatcher [employer] [facility] Faye Quijano, RN RN Colten Ford MD MD [facility] Elva Plaza RN RN ss Nima Sanchez PA PA cp Ralf Jones RN RN Ryan Longoria RN RN ll1 Corrections: (The following items were deleted from the chart) 01/10 17:15 16:40 C-REACTIVE PROTEIN+C.LAB.BRZ ordered. [facility] EDTN 19:02 17:52 Hospitalization Ordered by Keith Lopez MD for Inpatient Admission. Preliminary diagnosis is Pneumonia due to other specified infectious organisms; Respiratory failure, unspecified with hypoxia. Bed requested for Telemetry/MedSurg (Inpatient). Status is Inpatient Admission. Condition is Serious. Problem is new. Symptoms have improved. cp 20:10 19:02 01/11/2020 17:52 Hospitalization Ordered by Keith Lopez MD for Inpatient ao Admission. Preliminary diagnosis is Pneumonia due to other specified infectious organisms; Respiratory failure, unspecified with hypoxia. Bed requested for Telemetry/MedSurg (Inpatient). Status is Inpatient Admission. Condition is Serious. Problem is new. Symptoms have improved. dw
[2020-01-11] MEDS ORDERED: ONDANSETRON 4 MG/2 ML VIAL IV PRN (18:21)
--- NOTE | 2020-01-11 18:23 | RAD REPORT ---
EXAM DESCRIPTION: RAD - Chest Single View - 01/11/2020 5:37 pm CLINICAL HISTORY: Cough;SOB Chest pain. COMPARISON: Chest Pa And Lat (2 Views) dated 01/07/2020; Chest Single View dated 04/03/2019; Chest Pa And Lat (2 Views) dated 02/25/2019; Chest Single View dated 08/06/2017; Chest For Pe Angio dated 020 FINDINGS: Portable technique limits examination quality. Mild bilateral pulmonary opacities are present, greatest in the lung bases, likely representing pneum onia. Findings are moderately progressive since the comparative radiograph. The heart is normal in si ze. No displaced fractures.
--- NOTE | 2020-01-11 18:31 | RAD REPORT ---
EXAM DESCRIPTION: CT - Chest For Pe Angio - 01/11/2020 6:25 pm CLINICAL HISTORY: Chest pain. SOB COMPARISON: No comparisons TECHNIQUE: CT angiogram of the pulmonary arteries was performed with MIP. All CT scans are performed using dose optimization technique as appropriate and may include automated exposure control or mA/KV adjustment according to patient size. FINDINGS: No evidence of pulmonary thromboembolism. No acute aortic finding demonstrated. Moderate bilateral ground-glass and alveolar lung infiltrates are present, greatest in the lung bases . No significant pericardial or pleural fluid. No concerning bony finding. Fatty liver is present. IMPRESSION: No evidence of pulmonary thromboembolism. Moderate bilateral ground-glass and alveolar lung infiltrates are present, greatest in the lung bases . While not specific, this pattern can be seen in COVID-19 infection.
[2020-01-11] MEDS ORDERED: NA CHLORIDE 0.9% 1,000 ML IV SCH ×2 (19:00→22:20)
[2020-01-11] MEDS ORDERED: dexAMETHasone 4 MG/ML VIAL ONE (19:04)
[2020-01-11] MEDS ORDERED: AZITHROMYCIN 500 MG INJ IVPB ONE (19:05)
[2020-01-11] MEDS ORDERED: NA CHLORIDE 0.9% 250 ML ONE (19:05)
[2020-01-11] MEDS ORDERED: ACETAMINOPHEN 325 MG TABLET PO PRN (21:16)
[2020-01-11] MEDS: INSULIN -REGULAR HUMAN 50 UNIT/0.5 ML ML SQ SCH (21:19)
[2020-01-11] MEDS: PIPER/TAZO/NS 3.375gm 3.375 GM/100 ML BAG IV SCH (21:40)
[2020-01-11] MEDS ORDERED: PIPER/TAZO/NS 3.375gm 3.375 GM/100 ML BAG ONE ×2 (21:40→23:45)
--- NOTE | 2020-01-11 22:15 | P.HP ---
Certification for Inpatient Patient admitted to: Inpatient With expected LOS: >2 Midnights Practitioner: I am a practitioner with admitting privileges, knowledge of patient current condition, hospital course, and medical plan of care. Services: Services provided to patient in accordance with Admission requirements found in Title 42 Section 412.3 of the Code of Federal Regulations Patient History Date of Service: 01/11/20 Reason for admission: DYSPNEA, FEVER History of Present Illness: IS A DIABETIC WHO IS NOT COMPLIANT ABOUT DIABETES HAS HAD DYSPNEA FOR A FEW DAYS. ON MONDAY I CALLED HIM THAT HE HAD PNEUMONIA AND SHOULD BE ON ZITHROMAX. HE AT THAT TIME WAS DRIVING WITH FAMILY ON VACATION TO [place], [place]. I TOLD THE TO FIND AN ER OR URGENT CARE CLOSEBY THERE AN GET TESTED FORM COVID INFECTION. AFTER THAT CALLS TODAY WH[place] THAT HE IS NOT DOING WELL, HAD FEVER AND DYSPNEA IS WORSE. I TOLD THEM TO STOP AT [facility] IN [place] AND GET CHECKED FOR PNEUMONIA AND COVID INFECTION. HE REFUSED TO DO SO AND CAME STRAIGHT TO [facility]. WE CONFIRM THAT HIS PNEUMONIA IS WORSE, HE HAS NO PE ON CT SCAN. I AM NOT SURE HE TOOK ZITHROMAX I CALLED IN FOR HIM ON MONDAY. Allergies No Known Allergies Allergy (Verified 01/11/20 21:58) Home Medications: Amlodipine [Norvasc] 5 mg PO DAILY 08/06/17 Fenofibrate [Tricor] 145 mg PO DAILY 08/06/17 Glimepiride 4 mg PO DAILY 08/06/17 Losartan Potassium 100 mg PO DAILY 08/06/17 Sitagliptin Phos/Metformin HCl [Janumet Xr 100-1,000 mg Tablet] 1 each PO DAILY 08/06/17 bisoproloL fumarate [Zebeta] 10 mg PO DAILY 08/06/17 Metformin ER [Glucophage ER*] 1,000 mg PO BID #60 tab.sa 08/09/17 - Social History Alcohol use: No CD- Drugs: No Caffeine use: No Review of Systems 10-point ROS is otherwise unremarkable General: Weakness, Malaise Respiratory: Shortness of Breath (VISIBLE ON TELEHEALTH VISIT.) Physical Examination - Vital Signs Temperature: 98.2 F Blood Pressure: 118/65 Pulse: 84 Respirations: 26 - Physical Exam General: Alert, Mild distress, Moderate distress, Obese HEENT: Atraumatic, PERRLA, Mucous membr. moist/pink, EOMI, Sclerae nonicteric Neck: Supple, 2+ carotid pulse no bruit, No LAD, Without JVD or thyroid abnormality Respiratory: Other (NORMAL THAN HIGHER RESP RATE) Cardiovascular: Regular rate/rhythm (ON TELEM) Musculoskeletal: No tenderness Integumentary: No rashes Neurological: Normal gait, Normal speech, Normal strength at 5/5 x4 extr, Normal tone, Normal affect Lymphatics: No axilla or inguinal lymphadenopathy - Studies Laboratory Data (last 24 hrs) 01/11/20 16:40: PT 15.7 H, INR 1.34 01/11/20 16:40: WBC 8.2 D, Hgb 12.0 L, Hct 35.0 L, Plt Count 309 D 01/11/20 16:40: Sodium 140, Potassium 3.7, BUN 22 H, Creatinine 1.48 H, Glucose 135 H, Magnesium 2.2, Total Bilirubin 0.4, AST 35, ALT 47, Alkaline Phosphatase 80 Microbiology Data (last 24 hrs): 01/11/20 16:50 Nasopharnyx Influenza Type A Antigen Screen - Final 01/11/20 16:50 Nasopharnyx Influenza Type B Antigen Screen - Final 01/11/20 16:50 Nasopharnyx Coronavirus COVID-19 PCR - Final 01/11/20 16:50 Throat Group A Streptococcus Rapid Screen - Final Assessment and Plan - Problems (Diagnosis) (1) Pneumonia Current Visit: Yes Status: Acute Plan: POSSIBLY COVID19. MAY HAVE BACTERIAL INFECTION PROCALCITONIN IS HIGH. WILL FU CRP. PE RULED OUT. INHALER DEXAMETHASONE IV DAILY. ZITHROMAX. ASKED ABOUT HCQ- I EXPLAINED THAT SO FAR THERE IS NO STRONG EVIDENCE TO USE THIS MEDICINE YET. ALL PROSPECTIVE STUDIES HAVE SHOWN NO BENEFIT FOR MILD TO MODERATE DISEASE. CONSULT DR. CURRY. Qualifiers: Pneumonia type: due to unspecified organism (2) Diabetes Onset Date: 08/09/17 Current Visit: No Status: Chronic Plan: CHECK A1C LDL URINARY STELLA. WILL NEED MORE INSULIN HE IS ON STEROIDS NOW. Qualifiers: Diabetes mellitus type: type 2 (3) HTN (hypertension) Onset Date: 08/09/17 Current Visit: No Status: Chronic - Advance Directives Does patient have a Living Will: No Does patient have a Durable POA for Healthcare: No
[2020-01-11 22:38] VITALS: BMI 31.1
[2020-01-12] MEDS: PIPER/TAZO/NS 3.375gm 3.375 GM/100 ML BAG IV SCH ×3 (03:04→16:51)
[2020-01-12 04:12] LABS: Absolute Lymphocytes (CBC) 0.3 K/uL (0.7-4.9); Hematocrit 33.3 % (39.6-49.0); Lymphocytes % 4.5 % (15.3-44.8); MPV 7.1 fL (7.6-11.3)
[2020-01-12 04:29] LABS: Potassium 3.8 mmol/L (3.5-5.1)
[2020-01-12] MEDS: INSULIN -REGULAR HUMAN 50 UNIT/0.5 ML ML SQ SCH ×4 (08:19→20:14)
[2020-01-12] MEDS: ASPIRIN 325 MG TAB PO SCH (08:19)
[2020-01-12] MEDS: BISOPROLOL 5 MG TABLET PO SCH (09:00)
[2020-01-12] MEDS ORDERED: AZITHROMYCIN IV 500 MG in NA CHLORIDE 0.9% 250 ML IVPB SCH (09:00)
[2020-01-12] MEDS ORDERED: dexAMETHasone 10 MG/ML VIAL IV SCH (09:00)
[2020-01-12] MEDS: VITAMIN D 1000 UNIT TAB PO SCH (09:00)
[2020-01-12] MEDS ORDERED: HOME MED 1 EA UNK (Glimepiride [Glimepiride] 4 MG) PO SCH (09:00)
[2020-01-12] MEDS ORDERED: ENOXAPARIN 40 MG/0.4 ML SQ SCH (09:00)
[2020-01-12] MEDS: ASCORBIC ACID 500 MG TABLET PO SCH ×3 (09:40→20:15)
[2020-01-12] MEDS: EZETIMIBE 10 MG TAB PO SCH (09:40)
[2020-01-12] MEDS: METFORMIN HCL 500 MG TAB PO SCH ×2 (09:40→16:51)
[2020-01-12] MEDS: THIAMINE HCL 100 MG TABLET PO SCH (09:40)
[2020-01-12] MEDS: METHYLPREDNISOLONE 125 MG INJ IV SCH ×2 (09:41→20:15)
[2020-01-12] MEDS: AMLODIPINE 5 MG TAB PO SCH (09:43)
--- NOTE | 2020-01-12 10:25 | P.CNS ---
Date of Consult: 01/12/20 Reason for Consult: Pneumonia Chief Complaint: DYSPNEA, FEVER History of Present Illness: Patient is 66 years of age with multiple medical problems admitted with shortness of breath he has been sick for about a week chest x-ray shows an CT scan shows bilateral pulmonary infiltrates consistent with the florian virus infection he is doing much better Allergies No Known Allergies Allergy (Verified 01/11/20 21:58) Home Medications: Amlodipine Besylate 5 mg PO DAILY 01/11/20 Ezetimibe [Zetia] 10 mg PO DAILY 01/11/20 Fenofibrate [Tricor] 145 mg PO DAILY 01/11/20 Glimepiride 4 mg PO DAILY 01/11/20 Losartan Potassium 100 mg PO DAILY 01/11/20 Metformin HCl 1,000 mg PO BID 01/11/20 bisoproloL fumarate [Zebeta] 10 mg PO DAILY 01/11/20 - Past Medical/Surgical History Diabetic: Yes -: NIDDM -: HYPERLIPIDEMIA -: HTN -: PANCREATITIS -: HERNIA REPAIR -: CHOLECYSTECTOMY - Family History Father Medical History: Heart disease Mother History Unknown: Yes - Social History Smoking Status: Never smoker Alcohol use: No CD- Drugs: No Caffeine use: No Place of Residence: Home Review of Systems General: Malaise Respiratory: Shortness of Breath Physical Examination Temp Pulse Resp BP Pulse Ox 96.6 F L 67 22 H 115/75 92 01/12/20 07:40 01/12/20 07:40 01/12/20 07:40 01/12/20 07:40 01/12/20 07:40 General: Alert Laboratory Data (last 24 hrs) 01/11/20 16:40: PT 15.7 H, INR 1.34 01/11/20 16:40: WBC 8.2 D, Hgb 12.0 L, Hct 35.0 L, Plt Count 309 D 01/11/20 16:40: Sodium 140, Potassium 3.7, BUN 22 H, Creatinine 1.48 H, Glucose 135 H, Magnesium 2.2, Total Bilirubin 0.4, AST 35, ALT 47, Alkaline Phosphatase 80 - Problems (1) Respiratory failure Current Visit: Yes Status: Acute Plan: Patient is 54 years of age admitted with hypoxemia bilateral pulmonary infiltrates multiple underlying medical problems is feeling better most likely has florian virus patient's CRP was significantly elevated to 197 is currently saturating 92% on 5 L recommend increasing the dose of steroids until his CRP is less than 50 to be change to p.o. prednisone white count normal doubt bacterial pneumonia had additional supplements can Dc antibiotics Qualifiers: Chronicity: acute
[2020-01-12 10:50] LABS: Ferritin 1501.7 ng/mL (26-388)
--- NOTE | 2020-01-12 17:47 | P.PN ---
Subjective Date of Service: 01/12/20 Chief Complaint: DYSPNEA Subjective: No new changes MR. ACOSTA IS DYSPENIC AT REST. HE IS ON OXYGEN 5 LT. HE STILL CAN'T FINISH SENTENCE WITHOUT DYSPNEA. HE HAS NO CHEST PAIN. Review of Systems 10-point ROS is otherwise unremarkable General: Weakness, Malaise Respiratory: Shortness of Breath Physical Examination - Vital Signs Temperature: 97.2 F Blood Pressure: 109/69 Pulse: 71 Respirations: 20 Pulse Ox (%): 90 - Physical Exam General: Moderate distress, Obese HEENT: Atraumatic, PERRLA, EOMI Neck: Supple, JVD not distended Respiratory: Other (VISIBLE MODERATE DISTRESS ON TELEMEDICINE VISIT.) Cardiovascular: Regular rate/rhythm (ON TELEMETRY), Normal S1 S2 Musculoskeletal: No tenderness Integumentary: No rashes Neurological: Normal speech, Normal tone, Normal affect Lymphatics: No axilla or inguinal lymphadenopathy - Studies Microbiology Data (last 24 hrs): 01/11/20 16:50 Nasopharnyx Influenza Type A Antigen Screen - Final 01/11/20 16:50 Nasopharnyx Influenza Type B Antigen Screen - Final 01/11/20 16:50 Nasopharnyx Coronavirus COVID-19 PCR - Final 01/11/20 16:50 Throat Group A Streptococcus Rapid Screen - Final Medications List Reviewed: Yes Assessment And Plan - Current Problems (Diagnosis) (1) Pneumonia Current Visit: Yes Status: Acute Plan: CLINICALLY STABLE. STEROIDS IV INHALER OXYGEN BIPAP PRN. ZITHROMAX IV. I CALLED TODAY. LEFT MESSAGE. Qualifiers: Pneumonia type: due to unspecified organism (2) Diabetes Onset Date: 08/09/17 Current Visit: No Status: Chronic Plan: CHECK A1C LDL URINARY STELLA. WILL NEED MORE INSULIN HE IS ON STEROIDS NOW. Qualifiers: Diabetes mellitus type: type 2 (3) HTN (hypertension) Onset Date: 08/09/17 Current Visit: No Status: Chronic (4) Low testosterone Current Visit: Yes Status: Chronic Plan: START INJECTABLE TESTOSTEORNE. HIS LEVEL IS VERY LOW. THIS IS RELATED TO OBESITY AND DM. THIS MAY OR MAY NOT HELP WITH COVID INFECTION BUT HE IS LACKING IT AND IT IS THE MAIN MALE HORMONE.
[2020-01-12] MEDS: MELATONIN 3 MG TABLET PO SCH (20:15)
[2020-01-12] MEDS: ATORVASTATIN 40 MG TAB PO SCH (20:15)
[2020-01-12] MEDS: ENOXAPARIN 40 MG/0.4 ML SQ SCH (20:15)
[2020-01-13] MEDS: PIPER/TAZO/NS 3.375gm 3.375 GM/100 ML BAG IV SCH (00:39)
[2020-01-13 06:23] LABS: Ferritin 1476.4 ng/mL (26-388)
[2020-01-13] MEDS: INSULIN -REGULAR HUMAN 50 UNIT/0.5 ML ML SQ SCH ×4 (08:50→21:10)
[2020-01-13] MEDS: levoFLOXacin 500 MG TAB PO SCH (08:51)
[2020-01-13] MEDS: EZETIMIBE 10 MG TAB PO SCH (08:51)
[2020-01-13] MEDS: ASCORBIC ACID 500 MG TABLET PO SCH ×3 (08:51→21:10)
[2020-01-13] MEDS: VITAMIN D 1000 UNIT TAB PO SCH (08:51)
[2020-01-13] MEDS: METFORMIN HCL 500 MG TAB PO SCH ×2 (08:51→16:09)
[2020-01-13] MEDS: AMLODIPINE 5 MG TAB PO SCH (08:52)
[2020-01-13] MEDS: GLIMEPIRIDE 2 MG TABLET PO SCH (08:52)
[2020-01-13] MEDS: METHYLPREDNISOLONE 125 MG INJ IV SCH ×2 (08:54→21:09)
[2020-01-13] MEDS: ASPIRIN 325 MG TAB PO SCH (08:54)
[2020-01-13] MEDS: FENOFIBRATE 160 MG TAB PO SCH (08:54)
[2020-01-13] MEDS: THIAMINE HCL 100 MG TABLET PO SCH (08:54)
[2020-01-13] MEDS: ENOXAPARIN 40 MG/0.4 ML SQ SCH ×2 (08:54→21:09)
[2020-01-13] MEDS ORDERED: TESTOSTERONE CYPIONATE 200 MG IM SCH (09:00)
[2020-01-13] MEDS: BISOPROLOL 5 MG TABLET PO SCH (09:43)
--- NOTE | 2020-01-13 12:46 | P.PN ---
Subjective Date of Service: 01/13/20 Chief Complaint: Respiratory failure from florian virus Subjective: Improving (Improving still short of breath requiring high concentration of oxygen) Physical Examination - Vital Signs Temperature: 96.7 F Blood Pressure: 122/76 Pulse: 71 Respirations: 27 Pulse Ox (%): 91 - Studies Microbiology Data (last 24 hrs): 01/11/20 16:50 Throat Culture & Sensitivity - Final NORMAL UPPER RESPIRATORY HUY GROWN. Medications List Reviewed: Yes Assessment & Plan - Problems (Diagnosis) (1) Respiratory failure Current Visit: Yes Status: Acute Plan: Respiratory failure from florian virus CRP is declined to 107 patient is 95% oxygen on 45% FiO2 plan to decrease it to about 4 L and check is saturation monitors CRP levels possible discharge tomorrow if he can attain a saturation above 90% on 4 L consider anticoagulation at discharge Qualifiers: Chronicity: acute
--- NOTE | 2020-01-13 12:55 | P.PN ---
Subjective Date of Service: 01/13/20 Chief Complaint: Respiratory failure from florian virus Subjective: Improving MR. ACOSTA IS DYSPENIC AT REST. HE IS ON OXYGEN 5 LT. HE STILL CAN'T FINISH SENTENCE WITHOUT DYSPNEA. HE HAS NO CHEST PAIN. I DID A TELEVISIT WITH HIM TODAY. HE LOOKS AND FEELS A LOT BETTER. HE WAS ON BIPAP LAST NIGHT FOR HYPOXIA. HE IS STILL RUNNING ABOUT 90% ON 5 LT NC. Review of Systems 10-point ROS is otherwise unremarkable General: Weakness Respiratory: Shortness of Breath Physical Examination - Vital Signs Temperature: 96.7 F Blood Pressure: 122/76 Pulse: 71 Respirations: 27 Pulse Ox (%): 91 - Physical Exam General: Moderate distress, Obese HEENT: Atraumatic, PERRLA, EOMI Neck: Supple, JVD not distended Respiratory: Diminished (RAPID BREATHING BETTER THAN YESTERDAY.) Cardiovascular: Regular rate/rhythm (ON TELE.) Gastrointestinal: Normal bowel sounds, No tenderness Musculoskeletal: No tenderness Integumentary: No rashes Neurological: Normal speech, Normal tone, Normal affect Lymphatics: No axilla or inguinal lymphadenopathy - Studies Microbiology Data (last 24 hrs): 01/11/20 16:50 Throat Culture & Sensitivity - Final NORMAL UPPER RESPIRATORY HUY GROWN. Medications List Reviewed: Yes Assessment And Plan - Current Problems (Diagnosis) (1) Pneumonia Current Visit: Yes Status: Acute Plan: CLINICALLY STABLE. STEROIDS IV INHALER OXYGEN BIPAP PRN. ZITHROMAX IV. I CALLED TODAY. LEFT MESSAGE. Qualifiers: Pneumonia type: due to unspecified organism (2) Diabetes Onset Date: 08/09/17 Current Visit: No Status: Chronic Plan: CHECK A1C LDL URINARY STELLA. WILL NEED MORE INSULIN HE IS ON STEROIDS NOW. Qualifiers: Diabetes mellitus type: type 2 (3) HTN (hypertension) Onset Date: 08/09/17 Current Visit: No Status: Chronic (4) Low testosterone Current Visit: Yes Status: Chronic Plan: START INJECTABLE TESTOSTEORNE. HIS LEVEL IS VERY LOW. THIS IS RELATED TO OBESITY AND DM. THIS MAY OR MAY NOT HELP WITH COVID INFECTION BUT HE IS LACKING IT AND IT IS THE MAIN MALE HORMONE. (5) Pneumonia due to COVID-19 virus Current Visit: Yes Status: Acute Plan: CONFIRMATION CAME LAST NIGHT. HE IS ALREADY ON SUPPORTIVE CARE. HE LOOKS BETTER TODAY. ABX GIVEN HE HAS HIGH PROCALCITONIN. THERE IS NO SIGN OF BACTERIAL INFECTION.
[2020-01-13] MEDS: ATORVASTATIN 40 MG TAB PO SCH (21:09)
[2020-01-13] MEDS: MELATONIN 3 MG TABLET PO SCH (21:09)
[2020-01-14] MEDS ORDERED: INSULIN -REGULAR HUMAN 50 UNIT/0.5 ML ML SQ SCH (02:55)
[2020-01-14] MEDS ORDERED: GLUCAGON 1 MG/VIAL IM PRN (02:56)
[2020-01-14] MEDS ORDERED: D50W 25 GM/50 ML SYRINGE/VIAL IV PRN (02:56)
[2020-01-14 04:34] LABS: Ferritin 1146.6 ng/mL (26-388)
[2020-01-14] MEDS: FENOFIBRATE 160 MG TAB PO SCH (08:28)
[2020-01-14] MEDS: METHYLPREDNISOLONE 125 MG INJ IV SCH (08:28)
[2020-01-14] MEDS: ENOXAPARIN 40 MG/0.4 ML SQ SCH (08:28)
[2020-01-14] MEDS: ASCORBIC ACID 500 MG TABLET PO SCH ×2 (08:28→13:52)
[2020-01-14] MEDS: METFORMIN HCL 500 MG TAB PO SCH ×2 (08:29→16:57)
[2020-01-14] MEDS: levoFLOXacin 500 MG TAB PO SCH (08:29)
[2020-01-14] MEDS: GLIMEPIRIDE 2 MG TABLET PO SCH (08:29)
[2020-01-14] MEDS: ASPIRIN 325 MG TAB PO SCH (08:29)
[2020-01-14] MEDS: VITAMIN D 1000 UNIT TAB PO SCH (08:30)
[2020-01-14] MEDS: BISOPROLOL 5 MG TABLET PO SCH (08:32)
[2020-01-14] MEDS: AMLODIPINE 5 MG TAB PO SCH (08:34)
[2020-01-14] MEDS: EZETIMIBE 10 MG TAB PO SCH (08:34)
[2020-01-14] MEDS: INSULIN -REGULAR HUMAN 50 UNIT/0.5 ML ML SQ SCH ×3 (08:35→16:56)
[2020-01-14] MEDS: THIAMINE HCL 100 MG TABLET PO SCH (08:41)
--- NOTE | 2020-01-14 12:44 | P.DS ---
Admission Date: 01/11/20 Discharge Date: 01/14/20 Disposition: ROUTINE DISCHARGE Discharge Condition: SERIOUS Reason for Admission: Respiratory failure from florian virus - Problems (1) Pneumonia Current Visit: Yes Status: Acute Qualifiers: Pneumonia type: due to unspecified organism (2) Diabetes Onset Date: 08/09/17 Current Visit: No Status: Chronic Qualifiers: Diabetes mellitus type: type 2 (3) HTN (hypertension) Onset Date: 08/09/17 Current Visit: No Status: Chronic (4) Low testosterone Current Visit: Yes Status: Chronic (5) Pneumonia due to COVID-19 virus Current Visit: Yes Status: Acute Brief History of Present Illness: IS A DIABETIC WHO IS NOT COMPLIANT ABOUT DIABETES HAS HAD DYSPNEA FOR A FEW DAYS. ON MONDAY I CALLED HIM THAT HE HAD PNEUMONIA AND SHOULD BE ON ZITHROMAX. HE AT THAT TIME WAS DRIVING WITH FAMILY ON VACATION TO [place], [place]. I TOLD THE TO FIND AN ER OR URGENT CARE CLOSEBY THERE AN GET TESTED FORM COVID INFECTION. AFTER THAT CALLS TODAY WHILE DRIVING BACK HOME FROM [place] [id number] THAT HE IS NOT DOING WELL, HAD FEVER AND DYSPNEA IS WORSE. I TOLD THEM TO STOP AT [facility] IN [place] AND GET CHECKED FOR PNEUMONIA AND COVID INFECTION. HE REFUSED TO DO SO AND CAME STRAIGHT TO [facility]. WE CONFIRM THAT HIS PNEUMONIA IS WORSE, HE HAS NO PE ON CT SCAN. I AM NOT SURE HE TOOK ZITHROMAX I CALLED IN FOR HIM ON MONDAY. Hospital Course: MR. ACOSTA HAS COVID RELATED PNEUMONIA, HE HAS DONE WELL WITH STEROIDS, INHALER, HIS CRP HAS COME DOWN SIGNIFICANTLY. I ADDED TESTOSTERONE INJECSTIONS LEVEL WAS VERY LOW. HE WILL CONTINUE PREDNISONE, XARELTO, MELATONIN AND TESTOSTERONE AT HOME. HE IS STABLE ON OXYGEN. HE FEELS A LOT BETTER. HE WILL GO HOME TO DAY. Vital Signs/Physical Exam: Temp Pulse Resp BP Pulse Ox 97.1 F 62 19 126/82 96 01/14/20 08:00 01/14/20 08:34 01/14/20 08:00 01/14/20 08:34 01/14/20 08:00 Laboratory Data at Discharge: WBC 7.4 K/uL (4.3-10.9) 01/12/20 04:00 Hgb 11.4 g/dL (13.6-17.9) L 01/12/20 04:00 Hct 33.3 % (39.6-49.0) L 01/12/20 04:00 Plt Count 273 K/uL (152-406) 01/12/20 04:00 PT 15.7 SECONDS (9.5-12.5) H 01/11/20 16:40 INR 1.34 01/11/20 16:40 Sodium 143 mmol/L (136-145) 01/12/20 04:00 Potassium 3.8 mmol/L (3.5-5.1) 01/12/20 04:00 BUN 21 mg/dL (7-18) H 01/12/20 04:00 Creatinine 1.10 mg/dL (0.55-1.3) 01/12/20 04:00 Glucose 199 mg/dL (74-106) H 01/12/20 04:00 Magnesium 2.2 mg/dL (1.8-2.4) 01/11/20 16:40 Total Bilirubin 0.4 mg/dL (0.2-1.0) 01/11/20 16:40 AST 35 U/L (15-37) 01/11/20 16:40 ALT 47 U/L (12-78) 01/11/20 16:40 Alkaline Phosphatase 80 U/L (45-117) 01/11/20 16:40 Troponin I < 0.02 ng/mL (0.0-0.045) 01/11/20 20:00 Triglycerides 174 mg/dL (<150) H 01/12/20 04:00 Cholesterol 86 mg/dL (<200) 01/12/20 04:00 HDL Cholesterol 38 mg/dL (40-60) L 01/12/20 04:00 Cholesterol/HDL Ratio 2.26 01/12/20 04:00 Home Medications: Amlodipine Besylate 5 mg PO DAILY 01/11/20 Ezetimibe [Zetia*] 10 mg PO DAILY 01/11/20 Fenofibrate [Tricor*] 145 mg PO DAILY 01/11/20 Glimepiride 4 mg PO DAILY 01/11/20 Losartan Potassium 100 mg PO DAILY 01/11/20 Metformin HCl 1,000 mg PO BID 01/11/20 bisoproloL fumarate [Zebeta*] 10 mg PO DAILY 01/11/20 Melatonin [Melatonin*] 3 mg PO BEDTIME tablet 01/14/20 Rivaroxaban [Xarelto] 10 mg PO DAILY #15 tablet 01/14/20 predniSONE [Deltasone] 20 mg PO BID #21 tab 01/14/20 New Medications: predniSONE [Deltasone] 20 mg PO BID #21 tab Rivaroxaban [Xarelto] 10 mg PO DAILY #15 tablet Patient Discharge Instructions: TAKE VIT D3 2000 UNITS DAILY. VIT C 1000 MG DAILY. I CALLED IN TESTOSTERONE INJECTIONS- TAKE THAT ONCE WEEKLY. CALL OFFICE THIS MONDAY FOR APT IN AFTERNOON- TELEVISIT. USE OXYGEN DAILY. I CALLED IN NEBULIZER ALSO AT [facility]
[2020-01-14 16:46] VITALS: BP 133/82; TEMP 97.4
[2020-01-14 17:41] VITALS: O2SAT 91
== END 2020-01-14 19:09 | disposition home or self-care (01) | DRG 177 ==
LOC: ER 16:22 → ERHOLD 18:18 → 4TH 19:42
PROVIDERS: ADMIT Internal Medicine; ATTEND Internal Medicine
DX: U07.1 COVID-19 (principal); J12.89 Other viral pneumonia; J96.01 Acute respiratory failure with hypoxia; E11.9 Type 2 diabetes mellitus without complications; E78.5 Hyperlipidemia, unspecified; I10 Essential (primary) hypertension; E66.9 Obesity, unspecified; Z68.31 Body mass index [BMI] 31.0-31.9, adult; Z79.84 Long term (current) use of oral hypoglycemic drugs; Z79.899 Other long term (current) drug therapy; Z90.49 Acquired absence of other specified parts of digestive tract
CPT/HCPCS: 36415; 71045; 71275; 80048; 80061; 80076; 82728; 82947; 83001; 83036; 83605; 83735; 83880; 84145; 84146; 84403; 84484; 85025; 85379; 85610; 86140; 87040; 87070; 87081; 87205; 87804; 93005; 94660; 94760; 96365; 96372; 96375; 99284; J0456; J0696; J1100; J1650; J2543; J2920; J2930; J7030; J7050; Q9967; U0002

== ENCOUNTER 2022-11-29 20:04 | Emergency (ER) | payer BC, OTHER ==
--- OUTSIDE RECORDS SUMMARY | 2022-11-29 20:09 | XMS REPORT | Continuity of Care Document ---
:1965 Author Organization [facility] t Address [address] [facility] [address] [place] [id number] Care Team Providers Name Role Phone John TODD, Keith Primary Care Physician Only, Adc Test Attending Clinician Unavailable Srinivasan Ghosh MD Attending Clinician SRINIVASAN GHOSH Attending Clinician Unavailable Mario Seay MD Attending Clinician Doctor Unassigned, [place] Attending Clinician Unavailable Payers Payer Name Policy Type Policy Number Effective Date Expiration Date S ource Problems This patient has no known problems. Allergies, Adverse Reactions, Alerts Allergy Allergy Status Severity Reaction(s) Onset Inactive Treating Comm ents Source Name Type Date Date Clinician NO KNOWN Drug Active Univers ALLERGIE Class [facility] of [facility] Family History Family Member Diagnosis Comments Start Date Stop Date Source Natural [facility] Hy[facility] mother Diabetes [place] [facility] Social History Social Habit Start Date Stop Date Quantity Comments Source Sexual orientation [facility] Alcohol intake 2018-01-22 2018-01-22 Current [facility] 00:00:00 00:00:00 non-drinker of Hospital alcohol (finding) History of Social 2018-01-12 2018-01-[address] function 00:00:00 00:00:00 Hospital Tobacco use and 2018-01-01 2018-01-01 Smokeless [facility] exposure 00:00:00 00:00:00 tobacco non-user Hospital Sex Assigned At [birth year] [facility] 00:[facility]00 Hospital Smoking Status Start Date Stop Date Source Unknown if ever smoked [facility] Never smoked tobacco [facility] Medications Ordered Filled Start Stop Current Ordering Indication Dosage Frequency Signature Comments Components Source Medication Medication Date Date Medication? Clinician (SIG) Name Name BISOPROLOL 2018-0 Yes 10mg Take 10 mg M ethodi FUMARATE 8-[address] [facility]AL 15:02: Hospita 21 l metFORMIN 2018-0 Yes 500mg Q.5D Take 500 Met hodi (GLUCOPHAGE 8-[address] ) 500 mg 15:02: mouth 2 Hospit a tablet 21 (two) l times a day with meals. fenofibrate 2018-0 Yes 145mg QD Take 145 M ethodi (TRICOR) 8-[address] 145 MG 15:02: mouth Hospita tablet 21 daily. l ezetimibe 2017-0 Yes 10mg QD Take 10 mg Me thodi (ZETIA) 10 8-[address] mg tablet 15:02: daily. Hospit a 21 l metFORMIN 2017-0 Yes 500mg Q.5D Take 500 Met hodi (GLUCOPHAGE 8-[address] ) 500 mg 15:02: mouth 2 Hospit a tablet 21 (two) l times a day with meals. fenofibrate 2018-0 Yes 145mg QD Take 145 M ethodi (TRICOR) 8-[address] 145 MG 15:02: mouth Hospita tablet 21 daily. l ezetimibe 2017-0 Yes 10mg QD Take 10 mg [facility] (ZETIA) 10 8-[address] mg tablet 15:02: daily. Hospit a 21 l BISOPROLOL 0 Yes 10mg Take 10 mg M ethodi FUMARATE 8-[address] ORAL 15:02: Hospita 21 l metFORMIN 2018-0 Yes 500mg Q.5D Take 500 Met hodi (GLUCOPHAGE 8-[address] ) 500 mg 15:02: mouth 2 Hospit a tablet 21 (two) l times a day with meals. fenofibrate 2018-0 Yes 145mg QD Take 145 M ethodi (TRICOR) 8-[address] 145 MG 15:02: mouth Hospita tablet 21 daily. l ezetimibe 2018-0 Yes 10mg QD Take 10 mg Me [facility]odi (ZETIA) 10 8-[address] mg tablet 15:02: daily. Hospit a 21 l BISOPROLOL 2018-0 Yes 10mg Take 10 mg M ethodi FUMARATE 8-[address] ORAL 15:02: Hospita 21 l metFORMIN 2018-0 Yes 500mg Q.5D Take 500 Met hodi (GLUCOPHAGE 8-[address] ) 500 mg 15:02: mouth 2 Hospit a tablet 21 (two) l times a day with meals. fenofibrate 2018-0 Yes 145mg QD Take 145 M ethodi (TRICOR) 8-[address] 145 MG 15:02: mouth Hospita tablet 21 daily. l ezetimibe 2018-0 Yes 10mg QD Take 10 mg Me thodi (ZETIA) 10 8-[address] mg tablet 15:02: daily. Hospit a 21 l BISOPROLOL 2018-0 Yes 10mg Take 10 mg M ethodi FUMARATE 8-[address] ORAL 15:02: Hospita 21 l amLODIPine 2018-0 Yes Methodi (NORVASC) 5 7-09 st mg tablet 00:00: Hospita 00 l amLODIPine 2018-0 Yes [facility] (NORVASC) 5 7-09 st mg tablet 00:00: Hospita 00 l amLODIPine 2018-0 Yes Methodi (NORVASC) 5 7-09 st mg tablet 00:00: Hospita 00 l amLODIPine 2018-0 Yes Methodi (NORVASC) 5 7-09 st mg tablet 00:00: Hospita 00 l glimepiride 2018-0 Yes Method i (AMARYL) 4 6-30 st MG tablet 00:00: Hospita 00 l glimepiride 2018-0 Yes Method i (AMARYL) 4 6-30 st MG tablet 00:00: Hospita 00 l glimepiride 2018-0 Yes Method i (AMARYL) 4 6-30 st MG tablet 00:00: Hospita 00 l glimepiride 2018-0 Yes Method i (AMARYL) 4 6-30 st MG tablet 00:00: Hospita 00 l Procedures Procedure Date / Time Performed Performing Clinician [facility] e ASSIGNMENT OF BENEFITS 2020-09-29 18:17:31 Doctor Unassigned, No [facility] Plan of Care Planned Activity Planned Date Details Comments Source Future Scheduled 2022-11-26 [facility] Test 13:27:49 malignant neoplasm of colon (procedure) [code = 393369565] Future Scheduled 2022-11-26 [facility] Test 13:27:49 malignant neoplasm of colon (procedure) [code = 962303706] Future Scheduled 2022-11-26 [facility] for [facility] Test 13:27:49 malignant neoplasm of colon (procedure) [code = 371283271] Future Scheduled 2022-11-26 COVID-19 VACCINE (#1) [facility] Test 13:27:49 [code = COVID-19 VACCINE (#1)] Future Scheduled 2022-11-26 [facility] for [facility] Test 13:27:49 malignant neoplasm of colon (procedure) [code = 526592903] Future Scheduled 2022-11-26 [facility] for [facility] Test 13:27:49 malignant neoplasm of colon (procedure) [code = 163765712] Future Scheduled 2022-11-26 SHINGLES VACCINES (1 Met [facility] Test 13:27:49 of 2) [code = SHINGLES VACCINES (1 of 2)] Future Scheduled 2022-11-26 INFLUENZA VACCINE Method is Hospital Test 13:27:49 [code = INFLUENZA VACCINE] Future Scheduled 2021-04-14 COVID-19 VACCINE (1) Met [facility] Test 23:58:26 [code = COVID-19 VACCINE (1)] Future Scheduled 2021-04-14 COLONOSCOPY SCREENING [facility] Test 23:58:26 [code = COLONOSCOPY SCREENING] Future Scheduled 2021-04-14 SHINGLES VACCINES Method is Hospital Test 23:58:26 (#1) [code = SHINGLES VACCINES (#1)] Future Scheduled 2021-04-14 INFLUENZA VACCINE Method [facility] Hospital Test 23:58:26 [code = INFLUENZA VACCINE] Future Scheduled 2021-04-14 COVID-19 VACCINE (1) Met [facility] Test 23:58:26 [code = COVID-19 VACCINE (1)] Future Scheduled 2021-04-14 COLONOSCOPY SCREENING [facility] Test 23:58:26 [code = COLONOSCOPY SCREENING] Future Scheduled 2021-04-14 SHINGLES VACCINES Method is Hospital Test 23:58:26 (#1) [code = SHINGLES VACCINES (#1)] Future Scheduled 2021-04-14 INFLUENZA VACCINE Method is Hospital Test 23:58:26 [code = INFLUENZA VACCINE] Future Scheduled 2021-04-14 COVID-19 VACCINE (1) Met [facility] Test 23:58:26 [code = COVID-19 VACCINE (1)] Future Scheduled 2021-04-14 COLONOSCOPY SCREENING [facility] Test 23:58:26 [code = COLONOSCOPY SCREENING] Future Scheduled 2021-04-14 SHINGLES VACCINES Method [facility] Test 23:58:26 (#1) [code = SHINGLES VACCINES (#1)] Future Scheduled 2021-04-14 INFLUENZA VACCINE Method [facility] Test 23:58:26 [code = INFLUENZA VACCINE] Encounters Start End Encounter Admission Attending Care Care Encounter Source Date/Time Date/Time Type Type Clinicians Facility Department ID 2020-09-29 2020-09-29 Laboratory Only, Adc Test [facility] [id number] Univers 13:18:42 13:33:42 Only Srinivasan Ghosh [id number] [facility] [place] [id number] [facility] [id number] [facility] [address] 2020-09-29 2020-09-29 Outpatient R [facility] [id number] Univers 13:15:00 13:15:00 SRINIVASAN cortes of [facility] 2020-09-29 2020-09-[address] [facility] [id number] Univers 00:00:00 00:00:00 (Out) Mario Garza [id number] [facility] [place] [id number] [facility] [id number] [facility] [address] 2020-09-29 2020-09-29 Orders Doctor CHAN [id number] Univers 00:00:00 00:00:00 Only Unassigned, GRISEL [id number] ity of [place] [facility] [id number] [facility] [id number] [facility] [address] Results This patient has no known results.
[2022-11-29] MEDS ORDERED: ONDANSETRON 4 MG/2 ML VIAL ONE (20:33)
[2022-11-29] MEDS ORDERED: NA CHLORIDE 0.9% 1,000 ML ONE (20:33)
[2022-11-29] MEDS ORDERED: FAMOTIDINE 20 MG/2 ML VIAL IV ONE (20:33)
[2022-11-29] MEDS ORDERED: MORPHINE 4 MG/ML SYR ONE ×2 (20:33→20:49)
[2022-11-29 20:38] LABS: Absolute Lymphocytes (CBC) 0.5 K/uL (0.7-4.9); Hematocrit 39.4 % (39.6-49.0); Lymphocytes % 3.9 % (15.3-44.8); MCV 86.7 fL (80-100); MPV 9.1 fL (7.6-11.3); RBC Red Blood Cell Count 4.54 M/uL (4.33-5.43)
[2022-11-29 21:03] LABS: Albumin 3.8 g/dL (3.4-5.0); Bilirubin Total 0.6 mg/dL (0.2-1.0); Potassium 3.7 mEq/L (3.5-5.1); Protein, Total 8.1 g/dL (6.4-8.2)
--- NOTE | 2022-11-29 21:21 | RAD REPORT ---
EXAM DESCRIPTION: Wali Single View11/29/2022 9:14 pm CLINICAL HISTORY: Chest pain COMPARISON: 2019 FINDINGS: The lungs appear clear of acute infiltrate. The heart is normal size IMPRESSION: No acute abnormalities displayed
[2022-11-29 21:25] LABS: Blood Morphology Comment NOT SEEN (NOT SEEN); Platelet Estimate ADEQ; White Blood Cell Scan OK (OK)
--- NOTE | 2022-11-29 22:13 | RAD REPORT ---
EXAM DESCRIPTION: CT - Abdomen Pelvis Wo Contrast - 11/29/2022 9:59 pm CLINICAL HISTORY: Abdominal pain COMPARISON: 2019 TECHNIQUE: Computed axial tomography of the abdomen and pelvis was obtained. IV and oral contrast we re not requested. All CT scans are performed using dose optimization technique as appropriate and may include automated exposure control or mA/KV adjustment according to patient size. FINDINGS: The evaluation of solid organs, vessels and bowel is limited secondary to the lack of con trast administration. Caudate and left lobe of liver are prominent. This may indicate chronic disease. Cholecystectomy. Spleen, pancreas and adrenals. Small bilateral nonobstructing renal calculi. Moderate bilateral inguinal hernias contain fat The appendix is normal. There is no evidence of diverticulitis. Small to moderate umbilical hernia IMPRESSION: No acute abnormality is displayed.
[2022-11-29 23:50] LABS: Specific Gravity 1.021 (1.005-1.030); Urine Bacteria None Seen /HPF (<20); Urine Bilirubin NEGATIVE (Negative); Urine Blood Negative (Negative); Urine Clarity Clear (Clear); Urine Color Light-Yellow (Yellow); Urine Glucose 4+ (Over) (Negative); Urine Mucus Slight /HPF (None Seen); Urine Protein TRACE (Negative); Urine RBC <5 /HPF (None Seen); Urine Urobilinogen Normal (Normal); Urine pH 5.5 (5.0-7.0)
[2022-11-30] MEDS ORDERED: MORPHINE 4 MG/ML SYR ONE (00:35)
--- NOTE | 2022-11-30 00:45 | ER ---
Nurse's Notes [facility] Name: Parker Dumont Age: 57 yrs Sex: Male : 1965 Arrival Date: 11/29/2022 Time: 20:04 Bed 14 Private MD: Diagnosis: Upper abdominal pain, unspecified Presentation: 11/29 20:14 Chief complaint: Patient states: "I'm having severe upper abdominal pain since 3 pm mb9 today. It comes and goes and the pain is so bad that I'm N/V. I feel dizzy from the pain as well." Pt denies SOB and chest pain. Coronavirus screen: Vaccine status: Patient reports receiving the 2nd dose of the covid vaccine. Ebola Screen: No symptoms or risks identified at this time. Initial Sepsis Screen: Does the patient meet any 2 criteria? No. Patient's initial sepsis screen is negative. Does the patient have a suspected source of infection? No. Patient's initial sepsis screen is negative. Risk Assessment: Do you want to hurt yourself or someone else? Patient reports no desire to harm self or others. Onset of symptoms was November 29, 2022. 20:14 Method Of Arrival: Ambulatory mb9 20:14 Acuity: HANDY 3 mb9 Triage Assessment: 20:16 General: Appears uncomfortable, Behavior is cooperative. Pain: Complains of pain in mb9 abdomen Pain does not radiate. Pain currently is 10 out of 10 on a pain scale. Quality of pain is described as throbbing. Neuro: Sanchez Agitation-Sedation Scale (RASS): 0 - Alert and Calm Level of Consciousness is awake, alert, obeys commands, Oriented to person, place, time, situation, Appropriate for age. Neuro: Reports dizziness. Cardiovascular: Denies chest pain, shortness of breath. Respiratory: Airway is patent Respiratory effort is even, unlabored, Respiratory pattern is regular, symmetrical. GI: Abdomen is round non-distended, Reports nausea, vomiting. Derm: Skin is pink, warm \\T\\ dry. Historical: - Allergies: 20:15 No Known Allergies; mb9 - Home Meds: 20:15 amlodipine 5 mg tab 1 tab once daily [Active]; losartan 100 mg Oral tab 1 tab once mb9 daily [Active]; bisoprolol fumarate 10 mg Oral tab 1 tab once daily [Active]; glimepiride 4 mg Oral tab 1 tab once daily [Active]; fenofibrate 145mg Oral 1 tab once daily [Active]; Janumet Oral 1 tab evening [Active]; - PMHx: 20:15 Pancreatitis; Hypertension; High Cholesterol; Diabetes - NIDDM; mb9 - PSHx: 20:15 Appendectomy; Hernia; mb9 - Immunization history:: Adult Immunizations up to date. - Social history:: Smoking status: Patient denies any tobacco usage or history of. Screenin:17 [facility] ED Fall Risk Assessment (Adult) History of falling in the last 3 months, mb9 including since admission No falls in past 3 months (0 pts) Confusion or Disorientation No (0 pts) Intoxicated or Sedated No (0 pts) Impaired Gait No (0 pts) Mobility Assist Device Used No (0 pt) Altered Elimination No (0 pt) Score/Fall Risk Level 0 - 2 = Low Risk Oriented to surroundings, Maintained a safe environment, Educated pt \\T\\ family on fall prevention, incl call for assistance when getting out of bed. Abuse screen: Denies threats or abuse. Nutritional screening: No deficits noted. Tuberculosis screening: No symptoms or risk factors identified. Assessment: 20:33 General: Appears uncomfortable, Behavior is cooperative, restless. Pain: Complains of as6 pain in epigastric area and right upper quadrant. Pain: Noted to be restless. Neuro: No deficits noted. Cardiovascular: No deficits noted. Respiratory: No deficits noted. GI: Bowel sounds present X 4 quads. Abd is soft X 4 quads Abdomen is tender to palpation in right upper quadrant. : No deficits noted. No signs and/or symptoms were reported regarding the genitourinary system. EENT: No deficits noted. No signs and/or symptoms were reported regarding the EENT system. Derm: No deficits noted. No signs and/or symptoms reported regarding the dermatologic system. 21:30 Reassessment: Patient is alert, oriented x 3, equal unlabored respirations, skin as6 warm/dry/pink. pt reports slight improvement in pain, pt appears more calm at this time. 23:15 Reassessment: Patient and/or family updated on plan of care and expected duration. Pain ha1 level reassessed. Patient is alert, oriented x 3, equal unlabored respirations, skin warm/dry/pink. Patient states feeling better. Patient states symptoms have improved. 11/30 00:20 Reassessment: Patient and/or family updated on plan of care and expected duration. Pain ha1 level reassessed. Patient is alert, oriented x 3, equal unlabored respirations, skin warm/dry/pink. pain 10/10. notified care provider. Vital Signs: 11/29 20:14 BP 154 / 125; Pulse 80; Resp 18; Temp 98.5(O); Pulse Ox 100% on R/A; Weight 83.91 kg; mb9 Height 5 ft. 5 in. ; Pain 10/10; 21:29 BP 114 / 63; Pulse 73; Resp 21 S; Pulse Ox 95% on R/A; as6 22:15 BP 133 / 83; Pulse 77; Resp 22 S; Pulse Ox 97% on R/A; as6 23:12 BP 143 / 87; Pulse 73; Resp 15 S; Pulse Ox 95% on R/A; as6 23:54 BP 129 / 83; Pulse 74; Resp 22 S; Pulse Ox 96% on R/A; as6 11/30 00:20 BP 130 / 81; Pulse 73; Resp 18 S; Pulse Ox 96% on R/A; ha1 01:00 BP 131 / 85; Pulse 77; Resp 18 S; Pulse Ox 97% on R/A; ha1 11/29 20:14 Body Mass Index 30.79 (83.91 kg, 165.1 cm) mb9 11/29 20:14 Pain Scale: Adult mb9 ED Course: 11/29 20:07 Patient arrived in ED. ag3 20:08 Cammie Booker F[facility]C is [facility] kb 20:08 Nima Love MD is Attending Physician. kb 20:10 Malik Suggs RN is Primary Nurse. as6 20:13 Arm band placed on. mb9 20:15 Triage completed. mb9 20:17 Placed in gown. Bed in low position. Call light in reach. Side rails up X 1. Client mb9 placed on continuous cardiac and pulse oximetry monitoring. NIBP monitoring applied. 20:22 Inserted saline lock: 20 gauge in right antecubital area, using aseptic technique. mb9 20:27 Troponin High Sensitivity Sent. mb9 20:27 CBC with Diff Sent. mb9 20:27 CMP Sent. mb9 20:27 Lipase Sent. mb9 21:16 Chest Single View XRAY In Process Unspecified. EDMS 21:59 CT Abd/Pelvis - Without Contrast In Process Unspecified. EDMS 11/30 01:01 No provider procedures requiring assistance completed. IV discontinued, intact, ha1 bleeding controlled, No redness/swelling at site. Pressure dressing applied. Administered Medications: 11/29 20:32 Drug: NS 0.9% IV 1000 ml Route: IV; Rate: 1 bolus; Site: right antecubital; as6 20:32 Drug: Ondansetron IVP 4 mg Route: IVP; Site: right antecubital; as6 20:33 Drug: Famotidine IVP 20 mg Route: IVP; Site: right antecubital; as6 20:33 Drug: morphine IVP or IV 4 mg Route: IVP; Infused Over: 4 mins; Site: right antecubital;as6 20:42 Drug: morphine IVP or IV 4 mg Route: IVP; Infused Over: 4 mins; Site: right antecubital;as6 11/30 00:30 Drug: morphine IVP or IV 4 mg Route: IVP; Infused Over: 4 mins; Site: right antecubital;ha1 01:00 Follow up: Response: No adverse reaction; Pain is decreased; RASS: Alert and Calm (0) ha1 00:50 Drug: Alum-Mag Hydroxide-Simeth PO Suspension (200 mg-200 mg-20 mg/5 mL) 30 ml Route: ha1 PO; 01:00 Follow up: Response: No adverse reaction ha1 00:50 Drug: Dicyclomine PO 20 mg Route: PO; ha1 00:59 Follow up: Response: No adverse reaction ha1 Medication: 11/29 20:18 VIS not applicable for this client. mb9 Outcome: 11/30 00:45 Discharge ordered by MD. hayes 01:01 Discharged to home ambulatory, with family. ha1 01:01 Condition: stable 01:01 Discharge instructions given to patient, family, Instructed on discharge instructions, follow up and referral plans. medication usage, Demonstrated understanding of instructions, follow-up care, medications, Prescriptions given X 3. 01:01 Patient left the ED. ha1 Signatures: Dispatcher [employer] EDCammie Walter, CARINE PERFUSIONIST-Ckgarrick Francie Salmeron ag3 Malik Suggs RN RN as6 Lona Devries RN RN ha1 Vivi Trejo RN RN mb9 Corrections: (The following items were deleted from the chart) 00:34 00:15 Reassessment: Patient and/or family updated on plan of care and expected ha1 duration. Pain level reassessed. Patient is alert, oriented x 3, equal unlabored respirations, skin warm/dry/pink. ha1
--- NOTE | 2022-11-30 00:45 | EDPHYS ---
Physician Documentation [facility] Name: Parker Dumont Age: 57 yrs Sex: Male : 1965 Arrival Date: 11/29/2022 Time: 20:04 Bed 14 Private MD: ED Physician Nima Love HPI: 11/29 20:39 This 57 yrs old Male presents to ER via Ambulatory with complaints of kb Abdominal Pain. 20:39 The patient presents with abdominal pain in the epigastric area. Onset: The kb symptoms/episode began/occurred at 15:00. The symptoms do not radiate. Associated signs and symptoms: Pertinent positives: nausea and vomiting, Pertinent negatives: fever. The symptoms are described as constant. Modifying factors: The symptoms are alleviated by nothing, the symptoms are aggravated by nothing. Severity of pain: At its worst the pain was moderate in the emergency department the pain is unchanged. The patient has not experienced similar symptoms in the past. The patient has not recently seen a physician. Historical: - Allergies: 20:15 No Known Allergies; mb9 - Home Meds: 20:15 amlodipine 5 mg tab 1 tab once daily [Active]; losartan 100 mg Oral tab 1 tab once mb9 daily [Active]; bisoprolol fumarate 10 mg Oral tab 1 tab once daily [Active]; glimepiride 4 mg Oral tab 1 tab once daily [Active]; fenofibrate 145mg Oral 1 tab once daily [Active]; Janumet Oral 1 tab evening [Active]; - PMHx: 20:15 Pancreatitis; Hypertension; High Cholesterol; Diabetes - NIDDM; mb9 - PSHx: 20:15 Appendectomy; Hernia; mb9 - Immunization history:: Adult Immunizations up to date. - Social history:: Smoking status: Patient denies any tobacco usage or history of. ROS: 20:38 Constitutional: Negative for fever, chills, and weight loss. kb 20:38 Abdomen/GI: Positive for abdominal pain, nausea and vomiting, Negative for diarrhea, constipation. 20:38 All other systems are negative. Exam: 20:38 Constitutional: This is a well developed, well nourished patient who is awake, alert, kb and in no acute distress. Head/Face: Normocephalic, atraumatic. ENT: Moist Mucous membranes Cardiovascular: Regular rate and rhythm with a normal S1 and S2. No gallops, murmurs, or rubs. No pulse deficits. Respiratory: Respirations even and unlabored. No increased work of breathing. Talking in full sentences Skin: Warm, dry with normal turgor. Normal color. MS/ Extremity: Pulses equal, no cyanosis. Neurovascular intact. Full, normal range of motion. Neuro: Awake and alert, GCS 15, oriented to person, place, time, and situation. Moves all extremities. Normal gait. 20:38 Abdomen/GI: Inspection: abdomen appears normal, Bowel sounds: normal, Palpation: soft, in all quadrants, mild abdominal tenderness, in the epigastric area. 22:16 ECG was reviewed by the Attending Physician. kb Vital Signs: 20:14 BP 154 / 125; Pulse 80; Resp 18; Temp 98.5(O); Pulse Ox 100% on R/A; Weight 83.91 kg; mb9 Height 5 ft. 5 in. ; Pain 10/10; 21:29 BP 114 / 63; Pulse 73; Resp 21 S; Pulse Ox 95% on R/A; as6 22:15 BP 133 / 83; Pulse 77; Resp 22 S; Pulse Ox 97% on R/A; as6 23:12 BP 143 / 87; Pulse 73; Resp 15 S; Pulse Ox 95% on R/A; as6 23:54 BP 129 / 83; Pulse 74; Resp 22 S; Pulse Ox 96% on R/A; as6 11/30 00:20 BP 130 / 81; Pulse 73; Resp 18 S; Pulse Ox 96% on R/A; ha1 01:00 BP 131 / 85; Pulse 77; Resp 18 S; Pulse Ox 97% on R/A; ha1 11/29 20:14 Body Mass Index 30.79 (83.91 kg, 165.1 cm) mb9 11/29 20:14 Pain Scale: Adult mb9 MDM: 11/29 20:08 Patient medically screened. kb 20:39 Differential diagnosis: cholecystitis, Cholelithiasis, gastritis, gastroesophageal kb reflux disease, myocardia ischemia or infarction, non-specific abd pain, pancreatitis, Peptic Ulcer Disease. Data reviewed: vital signs, nurses notes. 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 00:45 Response to treatment: the patient's symptoms have markedly improved after treatment. kb 11/29 20:17 Order name: CBC with Diff; Complete Time: 21:30 kb 11/29 20:17 Order name: CMP; Complete Time: 21:56 kb 11/29 20:17 Order name: Lipase; Complete Time: 21:56 kb 11/29 20:20 Order name: Troponin High Sensitivity; Complete Time: 21:00 kb 11/29 21:26 Order name: CBC Smear Scan; Complete Time: 21:30 EDMS 11/29 23:13 Order name: Troponin High Sensitivity; Complete Time: 00:40 kb 11/29 23:24 Order name: Urinalysis w/ reflexes; Complete Time: 23:51 kb 11/29 20:20 Order name: Chest Single View XRAY; Complete Time: 21:23 kb 11/29 21:24 Order name: CT Abd/Pelvis - Without Contrast; Complete Time: 22:15 kb 11/29 20:20 Order name: EKG; Complete Time: 20:21 kb 11/29 20:17 Order name: IV Saline Lock; Complete Time: 20:27 kb 11/29 20:17 Order name: Labs collected and sent; Complete Time: 20:27 kb 11/29 20:20 Order name: EKG - Nurse/Tech; Complete Time: 20:29 kb 11/29 21:24 Order name: Vital Signs; Complete Time: 21:31 kb EC/20 22:16 Rate is 81 beats/min. Rhythm is regular. QRS [place] is Normal. LA interval is normal at kb 192 msec. QRS interval is normal at 96 msec. QT interval is normal at 450 msec. Administered Medications: 20:32 Drug: NS 0.9% IV 1000 ml Route: IV; Rate: 1 bolus; Site: right antecubital; as6 20:32 Drug: Ondansetron IVP 4 mg Route: IVP; Site: right antecubital; as6 20:33 Drug: Famotidine IVP 20 mg Route: IVP; Site: right antecubital; as6 20:33 Drug: morphine IVP or IV 4 mg Route: IVP; Infused Over: 4 mins; Site: right antecubital;as6 20:42 Drug: morphine IVP or IV 4 mg Route: IVP; Infused Over: 4 mins; Site: right antecubital;as6 11/30 00:30 Drug: morphine IVP or IV 4 mg Route: IVP; Infused Over: 4 mins; Site: right antecubital;ha1 01:00 Follow up: Response: No adverse reaction; Pain is decreased; RASS: Alert and Calm (0) ha1 00:50 Drug: Alum-Mag Hydroxide-Simeth PO Suspension (200 mg-200 mg-20 mg/5 mL) 30 ml Route: ha1 PO; 01:00 Follow up: Response: No adverse reaction ha1 00:50 Drug: Dicyclomine PO 20 mg Route: PO; ha1 00:59 Follow up: Response: No adverse reaction ha1 Disposition Summary: 11/30/22 00:45 Discharge Ordered Location: Home kb Condition: Stable kb Diagnosis - Upper abdominal pain, unspecified kb Followup: kb - With: Emergency Department - When: As needed - Reason: Worsening of condition Followup: kb - With: Private Physician - When: 2 - 3 days - Reason: Recheck today's complaints, Continuance of care, Re-evaluation by your physician Discharge Instructions: - Discharge Summary Sheet kb - Abdominal Pain, Adult, [id number] kb Forms: - Medication Reconciliation Form kb - Thank You Letter kb - Antibiotic Education kb - Prescription Opioid Use kb Prescriptions: - Protonix 40 mg Oral Tablet - take 1 tablet by ORAL route once daily; 30 tablet; Refills: 0, Product kb Selection Permitted - Zofran 4 mg Oral Tablet - take 1 tablet by ORAL route every 6 hours As needed; 20 tablet; Refills: 0, kb Product Selection Permitted - dicyclomine 20 mg Oral Tablet - take 1 tablet by ORAL route 4 times per day As needed; 20 tablet; Refills: 0, kb Product Selection Permitted Signatures: Dispatcher [employer] Cammie Underwood FNP-C FNP-Ckb Slawson, Ashby, RN RN as6 Lona Devries RN RN ha1 Vivi Trejo RN RN mb9
[2022-11-30] MEDS ORDERED: MAGNES/ALUMIN/SIMET 30ML UCUP ONE (00:54)
[2022-11-30] MEDS ORDERED: DICYCLOMINE HCL 10 MG CAP ONE (00:54)
[2022-11-30 01:16] VITALS: TEMP 98.5
[2022-11-30 01:32] VITALS: BP 131/85; O2SAT 97
--- NOTE | 2022-12-01 17:45 | EKG ---
Test Date: 2022-11-29 Test Time: 20:29:09 Soils Engineer: AR MEASUREMENT RESULTS: Intervals: Rate: 81 MT: 192 QRSD: 96 QT: 388 QTc: 450 [place]: P: 72 MT: 192 QRS: 69 T: 55 INTERPRETIVE STATEMENTS: Normal sinus rhythm Normal ECG Compared to ECG 01/11/2020 16:52:00 No significant changes Electronically Signed On 12-01-22 17:40:21 CDT by Javier Seaman
== END 2022-11-30 01:01 | disposition home or self-care (01) ==
LOC: ER 20:04
DX: R10.13 Epigastric pain (principal); I10 Essential (primary) hypertension; E11.9 Type 2 diabetes mellitus without complications; E78.00 Pure hypercholesterolemia, unspecified
CPT/HCPCS: 85025; 81001; 36415; 84484 ×2; 83690; 80053; 74176; 71045; J2405; J7030; 93005